=== PATIENT | male | born 1970 | race American Indian/Alaskan Native ===

== ENCOUNTER 2017-01-09 08:05 | Emergency (ER) | payer MEDICARE ==
--- NOTE | 2017-01-09 08:40 | XRay Report ---
ROUTINE CHEST, TWO VIEWS: HISTORY: Shortness of breath. The trachea, heart, mediastinal contour, lung machado and bony thorax are unremarkable. IMPRESSION: Unremarkable chest x-ray.
[2017-01-09 09:05] LABS: Basophils % (Auto) 0.7 % (0.0-1.8); Eosinophils % (Auto) 2.5 % (0.0-4.3); Hematocrit 43.2 % (35.5-45.6); Hemoglobin 14.5 gm/dl (11.8-15.2); Mean Corpuscular HGB Conc 34 % (32-34); Mean Corpuscular Hemoglobin 30 pg (28-32); Mean Corpuscular Volume 88 fl (84-94); Platelet Count 265 K/mm3 (140-440); Red Blood Count 4.88 M/mm3 (3.65-5.03); Red Cell Distribution Width 14.9 % (13.2-15.2); White Blood Count 7.2 K/mm3 (4.5-11.0)
[2017-01-09 09:07] LABS: Anion Gap 15 mmol/L; Blood Urea Nitrogen 14 mg/dL (9-20); Calcium 8.9 mg/dL (8.4-10.2); Carbon Dioxide 23 mmol/L (22-30); Chloride 102.4 mmol/L (98-107); Glucose 126 mg/dL (75-100); Potassium 3.7 mmol/L (3.6-5.0); Sodium 137 mmol/L (137-145)
--- NOTE | 2017-01-09 09:36 | Emergency Department Report ---
ED General Adult HPI - General Chief complaint: Dyspnea/Respdistress Stated complaint: LEG PAIN Time Seen by Provider: 01/09/17 09:22 Source: patient Mode of arrival: Ambulatory Limitations: No Limitations - History of Present Illness Initial comments: 46-year-old male presents to the emergency department complaining of leg pain and swelling. Patient reports over the past 3 days his legs have become swollen to the point where they have become painful. Patient describes aching pain in his legs. He states the swelling and pain is making it difficult for him to walk. He also reports mild shortness of breath over the past couple of days as well. He denies chest pain, diaphoresis, dizziness, nausea, or vomiting. There are no other complaints. -: Gradual, days(s) (3) Location: left, right, lower extremity Radiation: non-radiation Severity scale (0 -10): 3 Quality: aching Consistency: constant Improves with: none Worsens with: none Associated Symptoms: shortness of breath Treatments Prior to Arrival: none - Related Data Home Medications Medication Instructions Recorded Confirmed Last Taken Hydrochlorothiazide [HCTZ] 25 mg PO QDAY 03/19/16 05/07/16 05/07/16 09:00 Losartan [Cozaar] 100 mg PO QDAY 03/19/16 05/07/16 05/07/16 09:00 Previous Rx's Medication Instructions Recorded Last Taken Type traMADol [Ultram 50 MG tab] 50 mg PO Q6HR PRN #10 tablet 03/19/16 Unknown Rx Azithromycin [Zithromax Z-RAMON] 250 mg PO QDAY #6 tablet 09/25/16 Unknown Rx Ibuprofen [Motrin] 800 mg PO Q8HR PRN #14 tablet 09/25/16 Unknown Rx Promethazine /Codeine 5 ml PO Q6H PRN #100 ml 09/25/16 Unknown Rx [Phenergan/Codeine 6.25-10 mg/5Ml] Furosemide [Lasix] 20 mg PO QDAY #30 tablet 01/09/17 Unknown Rx Allergies Allergy/AdvReac Type Severity Reaction Status Date / Time No Known Allergies Allergy Verified 01/09/17 08:09 ED Review of Systems ROS: Stated complaint: LEG PAIN Other details as noted in HPI Comment: All other systems reviewed and negative Respiratory: shortness of breath Cardiovascular: edema ED Past Medical Hx - Past Medical History Previous Medical History?: Yes Hx Hypertension: Yes Hx GERD: Yes Additional medical history: GOUT. OBESITY - Surgical History Past Surgical History?: No - Family History Family history: no significant - Social History Smoking Status: Never Smoker Substance Use Type: None - Medications Home Medications: Home Medications Medication Instructions Recorded Confirmed Last Taken Type Hydrochlorothiazide [HCTZ] 25 mg PO QDAY 03/19/16 05/07/16 05/07/16 09:00 History Losartan [Cozaar] 100 mg PO QDAY 03/19/16 05/07/16 05/07/16 09:00 History traMADol [Ultram 50 MG tab] 50 mg PO Q6HR PRN #10 tablet 03/19/16 05/07/16 Unknown Rx Azithromycin [Zithromax Z-RAMON] 250 mg PO QDAY #6 tablet 09/25/16 Unknown Rx Ibuprofen [Motrin] 800 mg PO Q8HR PRN #14 tablet 09/25/16 Unknown Rx Promethazine /Codeine 5 ml PO Q6H PRN #100 ml 09/25/16 Unknown Rx [Phenergan/Codeine 6.25-10 mg/5Ml] Furosemide [Lasix] 20 mg PO QDAY #30 tablet 01/09/17 Unknown Rx ED Physical Exam - General Limitations: No Limitations General appearance: alert, in no apparent distress - Head Head exam: Present: atraumatic, normocephalic - Eye Eye exam: Present: normal appearance, PERRL, EOMI - ENT ENT exam: Present: normal exam, normal orophraynx, mucous membranes moist - Neck Neck exam: Present: normal inspection, full ROM. Absent: tenderness - Respiratory Respiratory exam: Present: normal lung sounds bilaterally. Absent: respiratory distress - Cardiovascular Cardiovascular Exam: Present: regular rate, normal rhythm, normal heart sounds - GI/Abdominal GI/Abdominal exam: Present: soft, normal bowel sounds. Absent: distended, tenderness - Extremities Exam Extremities exam: Present: normal inspection, full ROM, pedal edema (2+ pitting edema bilateral lower extremities extending to the knees). Absent: tenderness - Neurological Exam Neurological exam: Present: alert, oriented X3. Absent: motor sensory deficit - Skin Skin exam: Present: warm, dry, intact ED Course Vital Signs 01/09/17 01/09/17 01/09/17 08:15 09:34 10:10 Temperature 98.4 F 98.6 F Pulse Rate 103 H 95 H 95 H Respiratory 24 17 Rate Blood Pressure 206/120 204/121 Blood Pressure 182/116 [Left] O2 Sat by Pulse 99 97 Oximetry 01/09/17 10:11 Temperature Pulse Rate 95 H Respiratory 15 Rate Blood Pressure Blood Pressure 204/121 [Left] O2 Sat by Pulse 97 Oximetry ED Medical Decision Making - Lab Data Result diagrams: 01/09/17 08:37 01/09/17 08:37 - EKG Data -: EKG Interpreted by Me EKG shows normal: sinus rhythm, axis, intervals, QRS complexes Rate: normal - EKG Data When compared to previous EKG there are: no significant change Interpretation: unchanged when compared t (09/25/2016), nonspecific ST-T wave sofie - Radiology Data Radiology results: report reviewed, image reviewed Chest x-ray shows no acute cardiopulmonary abnormality. - Medical Decision Making Lab and imaging results reviewed and discussed with the patient. Patient will be discharged home at this time to follow up with his primary care physician. - Differential Diagnosis peripheral edema, CHF, renal failure Critical care attestation.: If time is entered above; I have spent that time in minutes in the direct care of this critically ill patient, excluding procedure time. ED Disposition Clinical Impression: Peripheral edema Disposition: DISCHARGED TO HOME OR SELFCARE Is pt being admited?: No Condition: Stable Instructions: Leg Edema (ED) Prescriptions: Furosemide [Lasix] 20 mg PO QDAY #30 tablet Referrals: PRIMARY CARE, [Primary Care Provider] - 3-5 Days Time of Disposition: 10:22
[2017-01-09] MEDS ORDERED: HCTZ PO ONE (09:47)
[2017-01-09] MEDS ORDERED: COZAAR PO ONE (09:48)
[2017-01-09 10:30] VITALS: BP 195/117
== END 2017-01-09 10:30 | disposition home or self-care (01) ==
LOC: ED 08:05
DX: R60.9 Edema, unspecified (principal); I10 Essential (primary) hypertension; K21.9 Gastro-esophageal reflux disease without esophagitis
CPT/HCPCS: 36415; 71020; 80048; 83880; 84484; 85025; 93005; 93010; 99284

== ENCOUNTER 2017-05-18 21:37 | Emergency (ER) | payer MEDICARE ==
[2017-05-18] MEDS ORDERED: CATAPRES ONE (22:04)
[2017-05-18] MEDS ORDERED: CATAPRES PO ONE (22:08)
[2017-05-18 22:36] LABS: Basophils % (Auto) 0.8 % (0.0-1.8); Eosinophils % (Auto) 3.3 % (0.0-4.3); Hematocrit 42.3 % (35.5-45.6); Mean Corpuscular HGB Conc 33 % (32-34); Mean Corpuscular Hemoglobin 30 pg (28-32); Mean Corpuscular Volume 89 fl (84-94); Platelet Count 304 K/mm3 (140-440); Red Blood Count 4.73 M/mm3 (3.65-5.03); Red Cell Distribution Width 14.6 % (13.2-15.2); White Blood Count 8.1 K/mm3 (4.5-11.0)
--- NOTE | 2017-05-18 22:55 | Cat Scan Report ---
FINAL REPORT PROCEDURE: CT head without contrast. TECHNIQUE: Computerized tomography of the head was performed without contrast material. HISTORY: Blurred vision, dizziness. COMPARISON: No prior studies are available for comparison. FINDINGS: The ventricles are normal in size. There is a focal area of diminished attenuation near the right internal capsule. This measures 6.6 millimeters x 6.1 millimeters. It may represent an old lacunar infarct, although this is unusual for the patient's age. It could also represent a dilated perivascular space of Virchow-Rl. It is of doubtful clinical significance. The roberts matter and white matter are otherwise normal. There are no mass lesions. There is no intracranial hemorrhage. The calvarium appears intact. The mastoid air cells are clear. There is mucosal thickening in the left maxillary sinus. IMPRESSION: Old lacunar infarct in the right basal ganglia versus congenital anomaly. Chronic left maxillary sinusitis.
[2017-05-18 23:05] LABS: Blood Urea Nitrogen 17 mg/dL (9-20); Calcium 9.3 mg/dL (8.4-10.2); Carbon Dioxide 24 mmol/L (22-30); Glucose 165 mg/dL (75-100)
[2017-05-18 23:06] LABS: Anion Gap 18 mmol/L; Chloride 100.5 mmol/L (98-107); Potassium 3.9 mmol/L (3.6-5.0); Sodium 139 mmol/L (137-145)
[2017-05-18] MEDS ORDERED: XYLOCAINE 1%/ EPI 1:100,000 INFILTRATI ONE (23:45)
--- NOTE | 2017-05-19 00:18 | Emergency Department Report ---
ED General Adult HPI - General Chief complaint: High BP Stated complaint: CP/HEAD PAIN Time Seen by Provider: 05/18/17 23:48 Source: patient Mode of arrival: Ambulatory Limitations: No Limitations - History of Present Illness Initial comments: Patient is a 46-year-old male past medical history as sleep apnea who presents with dental pain and earache. Patient's symptoms have been going on for last 2 days. Eating makes the pain worse and nothing makes it better. Patient states the pain is a 7 out of 10 the pain radiates from the mouth to the ear. It is a sharp achy pain. The pain is constant. Patient also states that he has a headache which has been going on since he's been having a toothache. Severity scale (0 -10): 0 - Related Data Home Medications Medication Instructions Recorded Confirmed Last Taken Hydrochlorothiazide [HCTZ] 25 mg PO QDAY 03/19/16 05/18/17 05/07/16 09:00 Losartan [Cozaar] 100 mg PO QDAY 03/19/16 05/18/17 05/07/16 09:00 Spironolactone [Aldactone] 25 mg PO QDAY 05/18/17 05/18/17 Unknown amLODIPine [Norvasc] 5 mg PO DAILY 05/18/17 05/18/17 Unknown Previous Rx's Medication Instructions Recorded Last Taken Type Acetaminophen [Acetaminophen TAB] 1,000 mg PO Q6HR #30 tablet 05/19/17 Unknown Rx Naproxen [Naprosyn] 375 mg PO BID #30 tablet 05/19/17 Unknown Rx Penicillin Vk [Veetids TAB] 250 mg PO QID #28 tablet 05/19/17 Unknown Rx Allergies Allergy/AdvReac Type Severity Reaction Status Date / Time No Known Allergies Allergy Verified 01/09/17 08:09 ED Review of Systems ROS: Stated complaint: CP/HEAD PAIN Other details as noted in HPI Constitutional: no symptoms reported Eyes: denies: eye pain, eye discharge, vision change ENT: dental pain. denies: ear pain, throat pain Respiratory: denies: cough, shortness of breath, wheezing Cardiovascular: denies: chest pain, palpitations Endocrine: no symptoms reported Gastrointestinal: denies: abdominal pain, nausea, diarrhea Genitourinary: denies: urgency, dysuria Musculoskeletal: denies: back pain, joint swelling, arthralgia Skin: denies: rash, lesions Neurological: denies: headache, weakness, paresthesias Psychiatric: denies: anxiety, depression Hematological/Lymphatic: denies: easy bleeding, easy bruising ED Past Medical Hx - Past Medical History Hx Hypertension: Yes Hx GERD: Yes Additional medical history: GOUT. OBESITY - Social History Smoking Status: Never Smoker Substance Use Type: None - Medications Home Medications: Home Medications Medication Instructions Recorded Confirmed Last Taken Type Hydrochlorothiazide [HCTZ] 25 mg PO QDAY 03/19/16 05/18/17 05/07/16 09:00 History Losartan [Cozaar] 100 mg PO QDAY 03/19/16 05/18/17 05/07/16 09:00 History Spironolactone [Aldactone] 25 mg PO QDAY 05/18/17 05/18/17 Unknown History amLODIPine [Norvasc] 5 mg PO DAILY 05/18/17 05/18/17 Unknown History Acetaminophen [Acetaminophen TAB] 1,000 mg PO Q6HR #30 tablet 05/19/17 Unknown Rx Naproxen [Naprosyn] 375 mg PO BID #30 tablet 05/19/17 Unknown Rx Penicillin Vk [Veetids TAB] 250 mg PO QID #28 tablet 05/19/17 Unknown Rx ED Physical Exam - General Limitations: No Limitations General appearance: alert, in no apparent distress - Head Head exam: Present: atraumatic, normocephalic - Eye Eye exam: Present: normal appearance - ENT ENT exam: Present: other (left lower molar dental caries on tooth 1 ) - Neck Neck exam: Present: normal inspection - Respiratory Respiratory exam: Present: normal lung sounds bilaterally. Absent: respiratory distress - GI/Abdominal GI/Abdominal exam: Present: soft, normal bowel sounds - Extremities Exam Extremities exam: Present: normal inspection - Back Exam Back exam: Present: normal inspection - Neurological Exam Neurological exam: Present: alert, oriented X3, CN II-XII intact - Skin Skin exam: Present: warm, dry, intact, normal color. Absent: rash ED Course Vital Signs 05/18/17 05/18/17 05/18/17 21:54 22:09 23:26 Temperature 98.8 F 98.8 F Pulse Rate 100 H 100 H 92 H Respiratory 20 20 Rate Blood Pressure 201/105 201/105 Blood Pressure 172/103 [Left] O2 Sat by Pulse 97 97 Oximetry 05/18/17 23:30 Temperature Pulse Rate Respiratory 20 Rate Blood Pressure Blood Pressure [Left] O2 Sat by Pulse 99 Oximetry - Reevaluation(s) Reevaluation #1: 05/19/17 00:38 Patient received dental block. Reevaluation #2: 05/19/17 01:03 Dental block a successful patient has no pain we'll send patient home with antibiotic and naproxen and Tylenol - Nerve Block Consent Obtained: verbal consent Local Anesthetic Used: Lidocaine 2% Amount of anesthesia used: 5 Side: left Intraoral Nerve Block: superior alveolar Procedure Successful: Yes Complications: none Patient Tolerated Procedure: no complications ED Medical Decision Making - Lab Data Result diagrams: 05/18/17 22:16 05/18/17 22:16 Lab Results 05/18/17 05/18/17 Range/Units 22:16 22:16 WBC 8.1 (4.5-11.0) K/mm3 RBC 4.73 (3.65-5.03) M/mm3 Hgb 14.0 (11.8-15.2) gm/dl Hct 42.3 (35.5-45.6) % MCV 89 (84-94) fl MCH 30 (28-32) pg MCHC 33 (32-34) % RDW 14.6 (13.2-15.2) % Plt Count 304 (140-440) K/mm3 Lymph % (Auto) 35.7 H (13.4-35.0) % Rice % (Auto) 8.3 H (0.0-7.3) % Eos % (Auto) 3.3 (0.0-4.3) % Baso % (Auto) 0.8 (0.0-1.8) % Lymph # 2.9 (1.2-5.4) K/mm3 Rice # 0.7 (0.0-0.8) K/mm3 Eos # 0.3 (0.0-0.4) K/mm3 Baso # 0.1 (0.0-0.1) K/mm3 Seg Neutrophils % 51.9 (40.0-70.0) % Seg Neutrophils # 4.2 (1.8-7.7) K/mm3 Sodium 139 (137-145) mmol/L Potassium 3.9 (3.6-5.0) mmol/L Chloride 100.5 (98-107) mmol/L Carbon Dioxide 24 (22-30) mmol/L Anion Gap 18 mmol/L BUN 17 (9-20) mg/dL Creatinine 1.0 (0.8-1.5) mg/dL Estimated GFR > 60 ml/min BUN/Creatinine Ratio 17.00 % Glucose 165 H (75-100) mg/dL Calcium 9.3 (8.4-10.2) mg/dL Troponin T < 0.010 (0.00-0.029) ng/mL - Radiology Data Radiology results: report reviewed, image reviewed CT head: Shows old lacunar infarct. No acute intracranial process - Medical Decision Making Chief medical diagnosis: Dental caries Differential medical diagnosis: Tension headache, metabolic, melena, periapical abscess I will get CT head, CBC, CMP Negrita and laboratory findings are within normal limits. Patient's clinical exam suggests toothache I will perform dental block. Discussed with patient importance of following up with dentist will give patient antibiotics for presumed periapical abscess. And I will send patient home with naproxen and Tylenol Critical care attestation.: If time is entered above; I have spent that time in minutes in the direct care of this critically ill patient, excluding procedure time. ED Disposition Clinical Impression: Tooth pain, Dental caries Disposition: DC- TO HOME OR SELFCARE Is pt being admited?: No Does the pt Need Aspirin: No Condition: Stable Additional Instructions: You can follow up at [facility] Address: [address] [place] [address] Hours: Open today 8:30AM4:30PM Suggest an edit Prescriptions: Acetaminophen [Acetaminophen TAB] 1,000 mg PO Q6HR #30 tablet Naproxen [Naprosyn] 375 mg PO BID #30 tablet Penicillin Vk [Veetids TAB] 250 mg PO QID #28 tablet Referrals: PRIMARY CARE, [Primary Care Provider] - 3-5 Days Time of Disposition: 01:11
[2017-05-19] MEDS ORDERED: XYLOCAINE 2%/ EPI 1:200,000 INFILTRATI ONE ×2 (00:29→00:49)
[2017-05-19 01:30] VITALS: BP 155/94
== END 2017-05-19 01:31 | disposition home or self-care (01) ==
LOC: ED 21:37
DX: K02.9 Dental caries, unspecified (principal); K08.89 Other specified disorders of teeth and supporting structures; K21.9 Gastro-esophageal reflux disease without esophagitis; M10.9 Gout, unspecified; E66.9 Obesity, unspecified
CPT/HCPCS: 36415; 70450; 80048; 84484; 85025; 93005; 93010

== ENCOUNTER 2017-06-15 13:35 | Emergency (ER) | payer MEDICARE ==
[2017-06-15 14:35] LABS: Bilirubin,Urine NEG (Negative); Blood,Urine LG (Negative); Ketones,Urine NEG (Negative); Leukocyte Esterase,Urine TR (Negative); Mucus,Urine FEW /HPF; Nitrite,Urine NEG (Negative); Protein,Urine <15 mg/dL mg/dL (Negative); RBC,Urine > 182.0 /HPF (0.0-6.0); Urobilinogen,Urine < 2.0 mg/dL (<2.0)
[2017-06-15] MEDS ORDERED: NACL 0.9% 1000 ML 1,000 ML IV ONE (16:18)
[2017-06-15] MEDS ORDERED: TORADOL IV ONE (16:18)
--- NOTE | 2017-06-15 16:18 | Emergency Department Report ---
ED Male HPI - General Chief complaint: Urogenital-Male Stated complaint: BLEEDING FROM PENIS Time Seen by Provider: 06/15/17 15:00 Source: patient Mode of arrival: Ambulatory Limitations: No Limitations - History of Present Illness MD Complaint: other (HEMATURIA) -: Sudden Location: penis Radiation: other (BACK) Severity: moderate, severe Quality: aching, sharp Consistency: intermittent Improves with: none Worsens with: none blood in urine, nausea/vomiting. denies: discharge, swelling, mass, rash, urinary retention, dysuria, fever, incontinence, other - Related Data Sexually active: Yes Home Medications Medication Instructions Recorded Confirmed Last Taken Hydrochlorothiazide [HCTZ] 25 mg PO QDAY 03/19/16 05/18/17 05/07/16 09:00 Losartan [Cozaar] 100 mg PO QDAY 03/19/16 05/18/17 05/07/16 09:00 Spironolactone [Aldactone] 25 mg PO QDAY 05/18/17 05/18/17 Unknown amLODIPine [Norvasc] 5 mg PO DAILY 05/18/17 05/18/17 Unknown Previous Rx's Medication Instructions Recorded Last Taken Type Acetaminophen [Acetaminophen TAB] 1,000 mg PO Q6HR #30 tablet 05/19/17 Unknown Rx Naproxen [Naprosyn] 375 mg PO BID #30 tablet 05/19/17 Unknown Rx Penicillin Vk [Veetids TAB] 250 mg PO QID #28 tablet 05/19/17 Unknown Rx Ondansetron [Zofran Odt] 4 mg PO Q6H PRN #6 tab.rapdis 06/15/17 Unknown Rx Tamsulosin [Flomax] 0.4 mg PO QDAY #10 cap 06/15/17 Unknown Rx traMADol [Ultram] 50 mg PO Q6HR PRN #10 tablet 06/15/17 Unknown Rx Allergies Allergy/AdvReac Type Severity Reaction Status Date / Time No Known Allergies Allergy Verified 01/09/17 08:09 ED Review of Systems ROS: Stated complaint: BLEEDING FROM PENIS Other details as noted in HPI Comment: Unobtainable due to pts medical conditions Constitutional: no symptoms reported, see HPI. denies: chills Eyes: as per HPI. denies: eye pain ENT: as per HPI. denies: ear pain, throat pain Respiratory: no symptoms reported, see HPI. denies: cough, orthopnea Cardiovascular: as per HPI. denies: chest pain, palpitations, dyspnea on exertion, orthopnea Endocrine: no symptoms reported, see HPI. denies: excessive sweating, flushing , intolerance to cold, intolerance to heat Gastrointestinal: as per HPI, abdominal pain (SUPRAPUB), nausea, vomiting (X2). denies: diarrhea, constipation, hematemesis, melena, hematochezia Genitourinary: as per HPI, hematuria Musculoskeletal: as per HPI, back pain Skin: as per HPI. denies: rash, lesions Neurological: as per HPI. denies: headache, weakness Psychiatric: as per HPI. denies: anxiety, depression Hematological/Lymphatic: as per HPI. denies: easy bleeding ED Past Medical Hx - Past Medical History Hx Hypertension: Yes Hx GERD: Yes Additional medical history: GOUT. OBESITY - Social History Smoking Status: Never Smoker Substance Use Type: None - Medications Home Medications: Home Medications Medication Instructions Recorded Confirmed Last Taken Type Hydrochlorothiazide [HCTZ] 25 mg PO QDAY 03/19/16 05/18/17 05/07/16 09:00 History Losartan [Cozaar] 100 mg PO QDAY 03/19/16 05/18/17 05/07/16 09:00 History Spironolactone [Aldactone] 25 mg PO QDAY 05/18/17 05/18/17 Unknown History amLODIPine [Norvasc] 5 mg PO DAILY 05/18/17 05/18/17 Unknown History Acetaminophen [Acetaminophen TAB] 1,000 mg PO Q6HR #30 tablet 05/19/17 Unknown Rx Naproxen [Naprosyn] 375 mg PO BID #30 tablet 05/19/17 Unknown Rx Penicillin Vk [Veetids TAB] 250 mg PO QID #28 tablet 05/19/17 Unknown Rx Ondansetron [Zofran Odt] 4 mg PO Q6H PRN #6 tab.rapdis 06/15/17 Unknown Rx Tamsulosin [Flomax] 0.4 mg PO QDAY #10 cap 06/15/17 Unknown Rx traMADol [Ultram] 50 mg PO Q6HR PRN #10 tablet 06/15/17 Unknown Rx ED Physical Exam - General Limitations: No Limitations General appearance: alert - Head Head exam: Present: atraumatic - Eye Eye exam: Present: PERRL - ENT ENT exam: Present: mucous membranes moist - Neck Neck exam: Present: normal inspection - Respiratory Respiratory exam: Present: normal lung sounds bilaterally. Absent: respiratory distress, wheezes, rales, rhonchi, stridor - Cardiovascular Cardiovascular Exam: Present: regular rate - GI/Abdominal GI/Abdominal exam: Present: soft, normal bowel sounds, other (MORBID OBESITY). Absent: distended, tenderness, guarding, rebound, rigid, diminished bowel sounds , hyperactive bowel sounds, hypoactive bowel sounds, organomegaly, mass, bruit, pulsatile mass, hernia - Rectal Rectal exam: Present: deferred - Extremities Exam Extremities exam: Present: normal inspection, full ROM - Back Exam Back exam: Present: normal inspection. Absent: tenderness, CVA tenderness (R), CVA tenderness (L), muscle spasm - Neurological Exam Neurological exam: Present: alert, oriented X3, CN II-XII intact, normal gait, reflexes normal - Psychiatric Psychiatric exam: Present: normal affect, normal mood - Skin Skin exam: Present: warm, dry, intact. Absent: rash ED Course Vital Signs 06/15/17 06/15/17 13:39 17:38 Temperature 98.6 F Pulse Rate 94 H Respiratory 18 Rate Blood Pressure 167/109 O2 Sat by Pulse 96 Oximetry - Reevaluation(s) Reevaluation #1: 06/15/17 17:54 TO ER W 1 W HX BACK PAIN, NAUSEA, VOMIT X 2 RAD TO SUPRAPUB AREA THEN TODAY HE URINATED AND FELT SHARP PAIN AND HAD HEMATURIA NO FEVER NO DYSURIA NO CVA TENDERNESS UA NOTED LABS AND CT MEDICATED CT NEG DISCUSSED W DR CHAVEZ TX FOR PRES STONE AND DC HOME W FU ED Medical Decision Making - Lab Data Result diagrams: 06/15/17 16:38 - Radiology Data Radiology results: report reviewed - Medical Decision Making NO FEVER NO CVA NO CONCERN STD HEMATURIA W PAIN CONSISTENT W STONE Critical care attestation.: If time is entered above; I have spent that time in minutes in the direct care of this critically ill patient, excluding procedure time. ED Disposition Clinical Impression: Nephrolithiasis, Hematuria Disposition: DC TO HOME OR SELFCARE Is pt being admited?: No Does the pt Need Aspirin: No Condition: Stable Instructions: Acute Hematuria (ED), Kidney Stones (ED), Renal Colic (ED) Additional Instructions: REST FLUIDS FOLLOW UP URO MEDS ORDERED Referrals: PRIMARY CARE, [Primary Care Provider] - 3-5 Days ALEXANDER MARTINEZ MD [Staff Physician] - 3-5 Days URIEL MOORE MD [Staff Physician] - 3-5 Days GENTRY HAINES MD [Staff Physician] - 3-5 Days Time of Disposition: 17:59
[2017-06-15 16:53] LABS: Basophils % (Auto) 1.4 % (0.0-1.8); Eosinophils % (Auto) 3.6 % (0.0-4.3); Hemoglobin 13.9 gm/dl (11.8-15.2); Mean Corpuscular HGB Conc 34 % (32-34); Mean Corpuscular Hemoglobin 31 pg (28-32); Mean Corpuscular Volume 90 fl (84-94); Platelet Count 290 K/mm3 (140-440); Red Blood Count 4.57 M/mm3 (3.65-5.03); Red Cell Distribution Width 14.6 % (13.2-15.2); White Blood Count 7.9 K/mm3 (4.5-11.0)
[2017-06-15] MEDS ORDERED: NORCO 5/325 PO ONE ×2 (17:00→17:56)
--- NOTE | 2017-06-15 17:18 | Cat Scan Report ---
FINAL REPORT EXAM: CT ABDOMEN PELVIS WO CON HISTORY: hematuria backpain TECHNIQUE: CT abdomen and pelvis without contrast PRIORS: None. FINDINGS: No acute abnormality identified in the lung bases. No focal abnormality identified within the liver parenchyma. The spleen demonstrates normal size and attenuation. No pancreatic abnormalities seen. Kidneys demonstrate no evidence of hydronephrosis or nephrolithiasis. No ureteral calculus identified. The adrenal glands are unremarkable. Abdominal aorta is normal in caliber. No pathologically enlarged lymph nodes are identified. No signs of free fluid or free air No evidence of small bowel dilatation. No pericolonic inflammatory changes are observed. Urinary bladder is unremarkable. Noted are metallic fragments within deep soft tissues of left hip. IMPRESSION: No evidence for and urolithiasis or obstructive uropathy No acute abnormality identified on noncontrast CT abdomen pelvis
[2017-06-15] MEDS ORDERED: ZOFRAN ODT PO ONE (17:57)
[2017-06-15] MEDS ORDERED: FLOMAX PO ONE (17:57)
[2017-06-15 18:39] VITALS: BP 132/74
[2017-06-15 18:55] LABS: Alanine Aminotransferase 21 units/L (7-56); Albumin 4.1 g/dL (3.9-5); Albumin/Globulin Ratio 1.4 %; Alkaline Phosphatase 97 units/L (35-129); Anion Gap 18 mmol/L; Blood Urea Nitrogen 12 mg/dL (9-20); Calcium 9.3 mg/dL (8.4-10.2); Carbon Dioxide 26 mmol/L (22-30); Chloride 99.5 mmol/L (98-107); Glucose 98 mg/dL (75-100); Potassium 4.4 mmol/L (3.6-5.0); Sodium 139 mmol/L (137-145); Total Protein 7.1 g/dL (6.3-8.2)
== END 2017-06-15 18:40 | disposition home or self-care (01) ==
LOC: ED 13:35
DX: N20.0 Calculus of kidney (principal); R31.9 Hematuria, unspecified; I10 Essential (primary) hypertension; K21.9 Gastro-esophageal reflux disease without esophagitis; E66.9 Obesity, unspecified; M10.9 Gout, unspecified
CPT/HCPCS: 36415; 74176; 80053; 81001; 85025; 96360; 99284; J7030

== ENCOUNTER 2018-05-16 16:30 | Emergency (ER) | payer MEDICARE ==
[2018-05-16 17:05] VITALS: BP 144/96
[2018-05-16 17:35] LABS: Bilirubin,Urine NEG (Negative); Blood,Urine NEG (Negative); Color,Urine Yellow (Yellow); Protein,Urine <15 mg/dL mg/dL (Negative); Urobilinogen,Urine < 2.0 mg/dL (<2.0)
[2018-05-16 17:46] LABS: Basophils # (Auto) 0.1 K/mm3 (0.0-0.1); Basophils % (Auto) 1.3 % (0.0-1.8); Eosinophils # (Auto) 0.2 K/mm3 (0.0-0.4); Eosinophils % (Auto) 1.8 % (0.0-4.3); Hematocrit 44.3 % (35.5-45.6); Hemoglobin 15.2 gm/dl (11.8-15.2); Lymphocytes % (Auto) 32.9 % (13.4-35.0); Mean Corpuscular HGB Conc 34 % (32-34); Mean Corpuscular Hemoglobin 31 pg (28-32); Mean Corpuscular Volume 90 fl (84-94); Monocytes # (Auto) 0.6 K/mm3 (0.0-0.8); Monocytes % (Auto) 6.3 % (0.0-7.3); Platelet Count 278 K/mm3 (140-440); Red Blood Count 4.93 M/mm3 (3.65-5.03); Red Cell Distribution Width 14.4 % (13.2-15.2)
[2018-05-16 17:58] LABS: BUN/Creatinine Ratio 14; Blood Urea Nitrogen 19 mg/dL (9-20); Calcium 9.2 mg/dL (8.4-10.2); Hemolysis Index 11
== END 2018-05-16 20:15 | disposition left against medical advice (07) ==
LOC: ED 16:30
DX: E11.65 Type 2 diabetes mellitus with hyperglycemia (principal); H53.8 Other visual disturbances; R53.83 Other fatigue; R51 Headache; R11.0 Nausea; K21.9 Gastro-esophageal reflux disease without esophagitis; E66.9 Obesity, unspecified; Z53.21 Procedure and treatment not carried out due to patient leaving prior to being seen by health care provider
CPT/HCPCS: 36415; 80048; 81001; 82805; 82962; 85025

== ENCOUNTER 2019-03-28 10:39 | Emergency (ER) | payer BC, MEDICARE ==
[2019-03-28] MEDS ORDERED: ASPIRIN PO ONE (10:48)
--- NOTE | 2019-03-28 11:46 | XRay Report ---
PROCEDURE: XR CHEST 1V AP TECHNIQUE: Chest radiograph single view. HISTORY: Chest Pain COMPARISONS: None . FINDINGS: Single frontal view of the chest was acquired and compared to the prior examination of February 18, 2019. The heart is normal in size. The lungs appear clear. The pleura and mediastinum are within normal mendoza its. IMPRESSION: No active disease in the chest This document is electronically signed by Wili Fernandez MD., March 28 2019 11:44:48 AM ET
--- NOTE | 2019-03-28 12:17 | Emergency Department Report ---
ED General Adult HPI - General Chief complaint: High BP Stated complaint: HYPERTENSION/DIABETIC/BLURRED VISION Time Seen by Provider: 03/28/19 11:31 Source: patient Mode of arrival: Ambulatory Limitations: No Limitations - History of Present Illness Initial comments: This is a 48 year old type II diabetic insulin-dependent with history of hypertension who presents to the emergency department primarily for concern that his sugar is elevated. He states that he has been urinating a lot, is weak and has some blurred vision. He states his blurred vision is symptomatic of his sugar being high. He did not check his sugar today nor his blood pressure. He states he is "on 4 medicines" for his blood pressure. He states he takes insulin once a day starting with an "L" which may be Lantus. He does not use a sliding scale. He goes to the [facility] for management of his diabetes and hypertension. He was admitted in February 2009 seen with the following discharge summary: Patient is a 48-year-old male with PMHx of CAD/CHF, hypertension, hyperlipidemia, DM type II, who presents to the ER with complaints of chest pain. 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 As above he has a history of medical noncompliance. -: Gradual, days(s) Radiation: other (no pain complaint) Associated Symptoms: denies other symptoms - Related Data Home Medications Medication Instructions Recorded Confirmed Last Taken Losartan [Cozaar] 100 mg PO QDAY 03/19/16 02/19/19 05/07/16 09:00 hydroCHLOROthiazide [HCTZ] 25 mg PO QDAY 03/19/16 05/18/17 05/07/16 09:00 Spironolactone [Aldactone] 25 mg PO QDAY 05/18/17 02/19/19 Unknown amLODIPine [Norvasc] 5 mg PO DAILY 05/18/17 02/19/19 Unknown Aspirin [Aspirin BABY CHEW TAB] 81 mg PO QDAY 02/19/19 02/19/19 Unknown Atenolol 25 mg PO DAILY 02/19/19 02/19/19 Unknown AtorvaSTATin [Lipitor] 10 mg PO QHS 02/19/19 02/19/19 Unknown Insulin Detemir [Levemir VIAL] 40 unit SQ QAM 02/19/19 02/19/19 Unknown metFORMIN [Glucophage] 1,000 mg PO QDAY 02/19/19 Unknown Previous Rx's Medication Instructions Recorded Last Taken Type Acetaminophen [Acetaminophen TAB] 1,000 mg PO Q6HR #30 tablet 05/19/17 Unknown Rx Naproxen [Naprosyn TAB] 375 mg PO BID #30 tablet 05/19/17 Unknown Rx Penicillin Vk [Veetids TAB] 250 mg PO QID #28 tablet 05/19/17 Unknown Rx Ondansetron [Zofran Odt] 4 mg PO Q6H PRN #6 tab.rapdis 06/15/17 Unknown Rx Tamsulosin [Flomax] 0.4 mg PO QDAY #10 cap 06/15/17 Unknown Rx traMADol [Ultram 50 MG tab] 50 mg PO Q6HR PRN #10 tablet 06/15/17 Unknown Rx Allergies Allergy/AdvReac Type Severity Reaction Status Date / Time No Known Allergies Allergy Verified 01/09/17 08:09 ED Review of Systems ROS: Stated complaint: HYPERTENSION/DIABETIC/BLURRED VISION Other details as noted in HPI Constitutional: weakness. denies: chills, fever Eyes: denies: eye pain, eye discharge, vision change ENT: denies: ear pain, throat pain Respiratory: denies: cough, shortness of breath, wheezing Cardiovascular: denies: chest pain, palpitations Endocrine: increased thirst, other (vague visual symptoms states typical of hyperglycemia) Gastrointestinal: denies: abdominal pain, nausea, diarrhea Genitourinary: denies: urgency, dysuria Musculoskeletal: denies: back pain, joint swelling, arthralgia Skin: denies: rash, lesions Neurological: denies: headache, weakness, paresthesias Psychiatric: denies: anxiety, depression Hematological/Lymphatic: denies: easy bleeding, easy bruising ED Past Medical Hx - Past Medical History Previous Medical History?: Yes Hx Hypertension: Yes Hx Congestive Heart Failure: Yes Hx Diabetes: Yes Hx GERD: Yes Additional medical history: GOUT. OBESITY - Surgical History Past Surgical History?: No - Social History Smoking Status: Never Smoker Substance Use Type: Prescribed - Medications Home Medications: Home Medications Medication Instructions Recorded Confirmed Last Taken Type Losartan [Cozaar] 100 mg PO QDAY 03/19/16 02/19/19 05/07/16 09:00 History hydroCHLOROthiazide [HCTZ] 25 mg PO QDAY 03/19/16 05/18/17 05/07/16 09:00 History Spironolactone [Aldactone] 25 mg PO QDAY 05/18/17 02/19/19 Unknown History amLODIPine [Norvasc] 5 mg PO DAILY 05/18/17 02/19/19 Unknown History Acetaminophen [Acetaminophen TAB] 1,000 mg PO Q6HR #30 tablet 05/19/17 Unknown Rx Naproxen [Naprosyn TAB] 375 mg PO BID #30 tablet 05/19/17 Unknown Rx Penicillin Vk [Veetids TAB] 250 mg PO QID #28 tablet 05/19/17 Unknown Rx Ondansetron [Zofran Odt] 4 mg PO Q6H PRN #6 tab.rapdis 06/15/17 Unknown Rx Tamsulosin [Flomax] 0.4 mg PO QDAY #10 cap 06/15/17 02/19/19 Unknown Rx traMADol [Ultram 50 MG tab] 50 mg PO Q6HR PRN #10 tablet 06/15/17 Unknown Rx Aspirin [Aspirin BABY CHEW TAB] 81 mg PO QDAY 02/19/19 02/19/19 Unknown History Atenolol 25 mg PO DAILY 02/19/19 02/19/19 Unknown History AtorvaSTATin [Lipitor] 10 mg PO QHS 02/19/19 02/19/19 Unknown History Insulin Detemir [Levemir VIAL] 40 unit SQ QAM 02/19/19 02/19/19 Unknown History metFORMIN [Glucophage] 1,000 mg PO QDAY 02/19/19 Unknown History ED Physical Exam - General Limitations: No Limitations General appearance: alert, in no apparent distress, obese - Head Head exam: Present: atraumatic, normocephalic - Eye Eye exam: Present: normal appearance. Absent: scleral icterus - ENT ENT exam: Present: mucous membranes moist - Neck Neck exam: Present: normal inspection. Absent: tenderness, meningismus - Respiratory Respiratory exam: Present: normal lung sounds bilaterally. Absent: respiratory distress - Cardiovascular Cardiovascular Exam: Present: regular rate, normal rhythm. Absent: systolic murmur, diastolic murmur, rubs, gallop - GI/Abdominal GI/Abdominal exam: Present: soft, normal bowel sounds. Absent: distended, tenderness, guarding, rebound, rigid - Rectal Rectal exam: Present: deferred - Extremities Exam Extremities exam: Present: normal inspection. Absent: pedal edema, calf tenderness - Back Exam Back exam: Present: normal inspection - Neurological Exam Neurological exam: Present: alert, oriented X3, CN II-XII intact, other (no apparent loss of visual acuity ). Absent: motor sensory deficit - Psychiatric Psychiatric exam: Present: normal affect, normal mood - Skin Skin exam: Present: warm, dry, intact, normal color. Absent: rash ED Course Vital Signs 03/28/19 03/28/19 03/28/19 10:41 12:26 14:02 Temperature 98.4 F Pulse Rate 99 H 84 72 Respiratory 18 16 Rate Blood Pressure 184/113 168/104 Blood Pressure 154/101 [Left] O2 Sat by Pulse 96 98 Oximetry 03/28/19 14:56 Temperature Pulse Rate 88 Respiratory 16 Rate Blood Pressure Blood Pressure 155/90 [Left] O2 Sat by Pulse 98 Oximetry - Reevaluation(s) Reevaluation #1: Patient is asymptomatic and resting supine comfortably. He has no shortness of breath. His pulse oximetry is 95-98%. He will receive insulin, blood pressure management and IV fluids. It is anticipated that he will be discharged. 03/28/19 13:44 Reevaluation #2: Tolerated fluids well. No blood pressures spike. Patient will be given some additional subcutaneous insulin and discharge instructions. 03/28/19 14:58 ED Medical Decision Making - Lab Data Result diagrams: 03/28/19 12:44 03/28/19 12:44 Laboratory Results - last 24 hr 03/28/19 12:44 WBC 6.4 RBC 5.51 H Hgb 17.2 H Hct 48.5 H MCV 88 MCH 31 MCHC 35 H RDW 14.2 Plt Count 287 Lymph % (Auto) 38.8 H [place] % (Auto) 7.2 Eos % (Auto) 2.1 Baso % (Auto) 1.0 Lymph # 2.5 [place] # 0.5 Eos # 0.1 Baso # 0.1 Seg Neutrophils % 50.9 Seg Neutrophils # 3.3 Laboratory Results - last 24 hr 03/28/19 03/28/19 12:44 12:44 WBC 6.4 RBC 5.51 H Hgb 17.2 H Hct 48.5 H MCV 88 MCH 31 MCHC 35 H RDW 14.2 Plt Count 287 Lymph % (Auto) 38.8 H [place] % (Auto) 7.2 Eos % (Auto) 2.1 Baso % (Auto) 1.0 Lymph # 2.5 [place] # 0.5 Eos # 0.1 Baso # 0.1 Seg Neutrophils % 50.9 Seg Neutrophils # 3.3 Sodium 131 L Potassium 4.7 Chloride 92.3 L Carbon Dioxide 21 L Anion Gap 22 BUN 26 H Creatinine 1.2 Estimated GFR > 60 BUN/Creatinine Ratio 22 Glucose 448 H Calcium 10.0 Troponin T < 0.010 Critical care attestation.: If time is entered above; I have spent that time in minutes in the direct care of this critically ill patient, excluding procedure time. ED Disposition Clinical Impression: Poorly-controlled hypertension, Poorly controlled diabetes mellitus Disposition: - TO HOME OR SELFCARE Is pt being admited?: No Does the pt Need Aspirin: No Condition: Stable Instructions: Diabetes Mellitus Type 2 in Adults (ED), Hypertension (ED) Additional Instructions: Further training on the management of your diabetes and blood pressure is needed. I would recommend [facility]. Return any acute change or problem. It is essential that you monitor your blood pressure and take your usual medications. A sliding scale would help you manage your sugar better. Referrals: DANICA STEWART MD [Primary Care Provider] - 24 Hours Time of Disposition: 15:01
[2019-03-28 12:57] LABS: Basophils # (Auto) 0.1 K/mm3 (0.0-0.1); Eosinophils # (Auto) 0.1 K/mm3 (0.0-0.4); Eosinophils % (Auto) 2.1 % (0.0-4.3); Hematocrit 48.5 % (35.5-45.6); Hemoglobin 17.2 gm/dl (11.8-15.2); Lymphocytes # (Auto) 2.5 K/mm3 (1.2-5.4); Lymphocytes % (Auto) 38.8 % (13.4-35.0); Mean Corpuscular HGB Conc 35 % (32-34); Mean Corpuscular Volume 88 fl (84-94); Monocytes # (Auto) 0.5 K/mm3 (0.0-0.8); Monocytes % (Auto) 7.2 % (0.0-7.3); Platelet Count 287 K/mm3 (140-440); Red Blood Count 5.51 M/mm3 (3.65-5.03); Red Cell Distribution Width 14.2 % (13.2-15.2)
[2019-03-28] MEDS ORDERED: ASPIRIN ONE (13:05)
[2019-03-28 13:14] LABS: BUN/Creatinine Ratio 22; Blood Urea Nitrogen 26 mg/dL (9-20); Hemolysis Index 78
[2019-03-28] MEDS ORDERED: NORMODYNE IV ONE (13:42)
[2019-03-28] MEDS ORDERED: NACL 0.9% 1000 ML 1,000 ML IV ONE (13:42)
[2019-03-28] MEDS ORDERED: HumuLIN R IV ONE (13:43)
[2019-03-28 14:56] VITALS: BP 155/90
[2019-03-28] MEDS ORDERED: HumuLIN R SUB-Q ONE (14:59)
== END 2019-03-28 15:21 | disposition home or self-care (01) ==
LOC: ED 10:39
DX: E11.65 Type 2 diabetes mellitus with hyperglycemia (principal); I11.0 Hypertensive heart disease with heart failure; I50.9 Heart failure, unspecified; K21.9 Gastro-esophageal reflux disease without esophagitis; E78.00 Pure hypercholesterolemia, unspecified; I25.10 Atherosclerotic heart disease of native coronary artery without angina pectoris; Z79.82 Long term (current) use of aspirin; Z79.4 Long term (current) use of insulin; Z79.899 Other long term (current) drug therapy
CPT/HCPCS: 36415; 71045; 80048; 82962; 84484; 85025; 93005; 93010; 96361; 96372; 96374; 96375; 99284; J7030; J1815

== ENCOUNTER 2019-08-19 16:05 | Observation (INO) | payer BC, MEDICARE ==
[2019-08-19] MEDS ORDERED: levETIRAcetam 1000 MG/NS 0.75% 1,000 MG/100 ML BAG IV ONE (16:27)
--- NOTE | 2019-08-19 16:28 | Emergency Department Report ---
ED Seizure HPI - General Stated Complaint: SEIZURE Time Seen by Provider: 08/19/19 16:23 Source: patient, EMS Mode of arrival: Stretcher Limitations: No Limitations - History of Present Illness Initial Comments: Patient is a 49-year-old male that presents emergency room with complaints of seizure activity. Patient states she had 2 seizures. Patient states he was witnessed by his family. Patient denies trauma. Family states he did not hit his head. Patient states she had a stroke 2 weeks ago and was seen at [facility]. Chest pain. Patient denies any physical complaint except for fatigue. MD Complaint: seizure -: Sudden Description of Episode: loss of consciousness, tonic-clonic movement -: second(s) Witnessed:: Yes Trauma: No Seizure History: none Place: home Possible Precipitating Event: none Associated Symptoms: denies: chest pain, confusion, cough, diaphoresis, fever/chills, loss of appetite, malaise, rash, shortness of breath, syncope, weakness, tongue injury, shoulder dislocation Treatments Prior to Arrival: none - Related Data Home Medications Medication Instructions Recorded Confirmed Last Taken Losartan [Cozaar] 100 mg PO QDAY 03/19/16 02/19/19 05/07/16 09:00 hydroCHLOROthiazide [HCTZ] 25 mg PO QDAY 03/19/16 05/18/17 05/07/16 09:00 Spironolactone [Aldactone] 25 mg PO QDAY 05/18/17 02/19/19 Unknown amLODIPine 5 mg PO DAILY 05/18/17 02/19/19 Unknown Aspirin [Aspirin BABY CHEW TAB] 81 mg PO QDAY 02/19/19 02/19/19 Unknown Atenolol 25 mg PO DAILY 02/19/19 02/19/19 Unknown AtorvaSTATin 10 mg PO QHS 02/19/19 02/19/19 Unknown Insulin Detemir [Levemir VIAL] 40 unit SQ QAM 02/19/19 02/19/19 Unknown metFORMIN [Glucophage] 1,000 mg PO QDAY 02/19/19 Unknown Previous Rx's Medication Instructions Recorded Last Taken Type Acetaminophen [Acetaminophen TAB] 1,000 mg PO Q6HR #30 tablet 05/19/17 Unknown Rx Naproxen [Naprosyn TAB] 375 mg PO BID #30 tablet 05/19/17 Unknown Rx Penicillin Vk [Veetids TAB] 250 mg PO QID #28 tablet 05/19/17 Unknown Rx Ondansetron [Zofran Odt] 4 mg PO Q6H PRN #6 tab.rapdis 06/15/17 Unknown Rx Tamsulosin [Flomax] 0.4 mg PO QDAY #10 cap 06/15/17 Unknown Rx traMADoL [Ultram 50 MG tab] 50 mg PO Q6HR PRN #10 tablet 06/15/17 Unknown Rx Allergies Allergy/AdvReac Type Severity Reaction Status Date / Time No Known Allergies Allergy Verified 01/09/17 08:09 ED Review of Systems ROS: Stated complaint: SEIZURE Other details as noted in HPI Constitutional: denies: chills, fever Eyes: denies: eye pain, eye discharge, vision change ENT: denies: ear pain, throat pain Respiratory: denies: cough, shortness of breath, wheezing Cardiovascular: denies: chest pain, palpitations Endocrine: no symptoms reported Gastrointestinal: denies: abdominal pain, nausea, diarrhea Genitourinary: denies: urgency, dysuria Musculoskeletal: denies: back pain, joint swelling, arthralgia Skin: denies: rash, lesions Neurological: denies: headache, weakness, paresthesias Psychiatric: denies: anxiety, depression Hematological/Lymphatic: denies: easy bleeding, easy bruising ED Past Medical Hx - Past Medical History Previous Medical History?: Yes Hx Hypertension: Yes Hx CVA: Yes Hx Congestive Heart Failure: Yes Hx Diabetes: Yes Hx GERD: Yes Additional medical history: GOUT. OBESITY - Surgical History Past Surgical History?: No - Family History Family history: no significant - Social History Smoking Status: Never Smoker Substance Use Type: Prescribed - Medications Home Medications: Home Medications Medication Instructions Recorded Confirmed Last Taken Type Losartan [Cozaar] 100 mg PO QDAY 03/19/16 02/19/19 05/07/16 09:00 History hydroCHLOROthiazide [HCTZ] 25 mg PO QDAY 03/19/16 05/18/17 05/07/16 09:00 History Spironolactone [Aldactone] 25 mg PO QDAY 05/18/17 02/19/19 Unknown History amLODIPine 5 mg PO DAILY 05/18/17 02/19/19 Unknown History Acetaminophen [Acetaminophen TAB] 1,000 mg PO Q6HR #30 tablet 05/19/17 Unknown Rx Naproxen [Naprosyn TAB] 375 mg PO BID #30 tablet 05/19/17 Unknown Rx Penicillin Vk [Veetids TAB] 250 mg PO QID #28 tablet 05/19/17 Unknown Rx Ondansetron [Zofran Odt] 4 mg PO Q6H PRN #6 tab.rapdis 06/15/17 Unknown Rx Tamsulosin [Flomax] 0.4 mg PO QDAY #10 cap 06/15/17 02/19/19 Unknown Rx traMADoL [Ultram 50 MG tab] 50 mg PO Q6HR PRN #10 tablet 06/15/17 Unknown Rx Aspirin [Aspirin BABY CHEW TAB] 81 mg PO QDAY 02/19/19 02/19/19 Unknown History Atenolol 25 mg PO DAILY 02/19/19 02/19/19 Unknown History AtorvaSTATin 10 mg PO QHS 02/19/19 02/19/19 Unknown History Insulin Detemir [Levemir VIAL] 40 unit SQ QAM 02/19/19 02/19/19 Unknown History metFORMIN [Glucophage] 1,000 mg PO QDAY 02/19/19 Unknown History ED Physical Exam - General Limitations: No Limitations General appearance: alert, in no apparent distress - Head Head exam: Present: atraumatic, normocephalic - Eye Eye exam: Present: normal appearance - ENT ENT exam: Present: mucous membranes moist - Neck Neck exam: Present: normal inspection - Respiratory Respiratory exam: Present: normal lung sounds bilaterally. Absent: respiratory distress - Cardiovascular Cardiovascular Exam: Present: regular rate, normal rhythm. Absent: systolic murmur, diastolic murmur, rubs, gallop - GI/Abdominal GI/Abdominal exam: Present: soft, normal bowel sounds - Rectal Rectal exam: Present: deferred - Extremities Exam Extremities exam: Present: normal inspection - Back Exam Back exam: Present: normal inspection - Neurological Exam Neurological exam: Present: alert, oriented X3, CN II-XII intact - Expanded Neurological Exam Expanded Patient oriented to: Present: person, place, time Best Eye Response ([place]): (4) open spontaneously Best Motor Response ([place]): (6) obeys commands Best Verbal Response ([place]): (5) oriented Tori Total: 15 - Psychiatric Psychiatric exam: Present: normal affect, normal mood - Skin Skin exam: Present: warm, dry, intact, normal color. Absent: rash ED Course Vital Signs 08/19/19 08/19/19 08/19/19 16:21 16:30 16:40 Temperature Pulse Rate 67 65 Respiratory 12 12 14 Rate Blood Pressure 126/52 126/52 Blood Pressure [Right] O2 Sat by Pulse 97 98 98 Oximetry 08/19/19 08/19/19 08/19/19 16:50 17:00 17:01 Temperature 97.7 F Pulse Rate 68 62 69 Respiratory 14 11 L 13 Rate Blood Pressure 121/63 154/65 Blood Pressure 145/81 [Right] O2 Sat by Pulse 98 98 97 Oximetry 08/19/19 08/19/19 08/19/19 17:10 17:20 17:44 Temperature Pulse Rate 59 L 62 65 Respiratory 11 L 9 L 10 L Rate Blood Pressure 154/65 164/83 164/83 Blood Pressure [Right] O2 Sat by Pulse 99 98 97 Oximetry 08/19/19 08/19/19 08/19/19 17:50 18:00 18:10 Temperature Pulse Rate 64 65 62 Respiratory 11 L 13 8 L Rate Blood Pressure 109/63 100/54 100/54 Blood Pressure [Right] O2 Sat by Pulse 98 98 99 Oximetry 08/19/19 08/19/19 08/19/19 18:20 18:30 18:40 Temperature Pulse Rate 62 63 69 Respiratory 18 14 12 Rate Blood Pressure 105/63 111/60 111/60 Blood Pressure [Right] O2 Sat by Pulse 98 98 99 Oximetry 08/19/19 08/19/19 08/19/19 18:50 19:00 19:10 Temperature Pulse Rate 65 66 66 Respiratory 12 11 L 11 L Rate Blood Pressure 133/81 104/63 104/63 Blood Pressure [Right] O2 Sat by Pulse 99 97 96 Oximetry 08/19/19 08/19/19 08/19/19 19:20 19:30 19:40 Temperature Pulse Rate 73 76 70 Respiratory 13 15 12 Rate Blood Pressure 114/60 162/84 162/84 Blood Pressure [Right] O2 Sat by Pulse 97 98 99 Oximetry 08/19/19 08/19/19 08/19/19 19:50 20:00 20:10 Temperature Pulse Rate 71 71 76 Respiratory 14 15 11 L Rate Blood Pressure 123/77 111/68 111/68 Blood Pressure [Right] O2 Sat by Pulse 98 96 98 Oximetry 08/19/19 08/19/19 20:20 20:30 Temperature Pulse Rate 75 Respiratory 12 Rate Blood Pressure 112/58 112/58 Blood Pressure [Right] O2 Sat by Pulse 97 85 Oximetry - Reevaluation(s) Reevaluation #1: I discussed all results with patient. I discussed plan of care with patient. Patient agrees with plan of care and admission. Patient to be admitted to the hospital service. 08/19/19 18:46 - Consultations Consultation #1: Hospitalist consult for admission. Hospitalist to admit patient. Hospitalist placing admission orders now 08/19/19 18:48 ED Medical Decision Making - Lab Data Result diagrams: 08/19/19 16:55 08/19/19 16:55 - EKG Data -: EKG Interpreted by Me EKG shows normal: sinus rhythm, axis, intervals, QRS complexes, ST-T waves Rate: normal - Radiology Data Radiology results: report reviewed CT head/brain wo con INDICATION / CLINICAL INFORMATION: 49 years Male; Seizure. TECHNIQUE: Routine CT head without contrast. All CT scans at this location are performed using CT dose reduction for ALARA by means of automated exposure control. COMPARISON: The study is compared to the previous CT of 05/18/2017. FINDINGS: BRAIN / INTRACRANIAL CONTENTS: There has been interval development of old infa rct involving the left santoyo radiata from the previous CT of developing encephalomalacia. There is a persistent old infarct along the genu of the right internal capsule. There is now mild ex vacu o dilatation of the left frontal horn. There otherwise appears be mild cerebral white matter disease most consistent with microvascular angiopathy. The above findings are advanced for the patient's age and correlation would be needed at. There is no CT evidence of acute intracranial hemorrhage or significant mass effect. ORBITS: No significant abnormality of visualized orbits. SINUSES / MASTOIDS: No significant abnormality the visualized paranasal sinuses or mastoid air cells. CRANIOCERVICAL JUNCTION: No significant abnormality. ADDITIONAL FINDINGS: None. IMPRESSION: 1. There is an infarct involving the anterior left santoyo radiata which appears chronic though has developed from the previous CT of 05/18/2017. 2. There is a persistent old lacunar infarct along the Maci of the right internal capsule. 3. There is otherwise mild microvascular angiopathy without CT evidence of acute intracranial hemorrhage. - Medical Decision Making Patient is a 49-year-old male that presents emergency room with new onset seizur and seizure activity. Patient recently had a stroke 2 weeks ago. Patient admitted to the hospitalist service. Patient's labs essentially unremarkable for hyperglycemia. Patient's head CT no acute findings but shows old strokes. Reviewed. - Differential Diagnosis seizure. New-onset seizure. Recent stroke Critical Care Time: Yes Critical care time in (mins) excluding proc time.: 35 Critical care attestation.: If time is entered above; I have spent that time in minutes in the direct care of this critically ill patient, excluding procedure time. Critical Care Time: 35 minutes ED Disposition Clinical Impression: Seizure, Recent cerebrovascular accident (CVA), New onset seizure, Hyperkalemia Disposition: [id number] OP ADMIT IP TO THIS HOSP Is pt being admited?: Yes Does the pt Need Aspirin: No Condition: Critical Time of Disposition: 18:49
[2019-08-19 17:21] LABS: Basophils # (Auto) 0.1 K/mm3 (0.0-0.1); Basophils % (Auto) 0.9 % (0.0-1.8); Eosinophils # (Auto) 0.2 K/mm3 (0.0-0.4); Eosinophils % (Auto) 2.2 % (0.0-4.3); Hematocrit 44.2 % (35.5-45.6); Hemoglobin 14.8 gm/dl (11.8-15.2); Lymphocytes # (Auto) 1.8 K/mm3 (1.2-5.4); Lymphocytes % (Auto) 24.8 % (13.4-35.0); Mean Corpuscular HGB Conc 33 % (32-34); Mean Corpuscular Volume 90 fl (84-94); Monocytes # (Auto) 0.6 K/mm3 (0.0-0.8); Platelet Count 311 K/mm3 (140-440)
[2019-08-19 17:33] LABS: Albumin 4.2 g/dL (3.9-5); BUN/Creatinine Ratio 12; Blood Urea Nitrogen 16 mg/dL (9-20); Calcium 9.4 mg/dL (8.4-10.2); Hemolysis Index 100
[2019-08-19 17:47] LABS: Alanine Aminotransferase 10 units/L (7-56)
--- NOTE | 2019-08-19 18:16 | Cat Scan Report ---
CT head/brain wo con INDICATION / CLINICAL INFORMATION: 49 years Male; Seizure. TECHNIQUE: Routine CT head without contrast. All CT scans at this location are performed using CT dos e reduction for ALARA by means of automated exposure control. COMPARISON: The study is compared to the previous CT of 05/18/2017. FINDINGS: BRAIN / INTRACRANIAL CONTENTS: There has been interval development of old infarct involving the left santoyo radiata from the previous CT of developing encephalomalacia. There is a persistent old infarct along the genu of the right internal capsule. There is now mild ex vacuo dilatation of the left fron marleni horn. There otherwise appears be mild cerebral white matter disease most consistent with microvascular belem opathy. The above findings are advanced for the patient's age and correlation would be needed at. The re is no CT evidence of acute intracranial hemorrhage or significant mass effect. ORBITS: No significant abnormality of visualized orbits. SINUSES / MASTOIDS: No significant abnormality the visualized paranasal sinuses or mastoid air cells. CRANIOCERVICAL JUNCTION: No significant abnormality. ADDITIONAL FINDINGS: None. IMPRESSION: 1. There is an infarct involving the anterior left santoyo radiata which appears chronic though has de veloped from the previous CT of 05/18/2017. 2. There is a persistent old lacunar infarct along the Maci of the right internal capsule. 3. There is otherwise mild microvascular angiopathy without CT evidence of acute intracranial hemorrh age. Signer Name: Huey Delcid MD Signed: 08/19/2019 6:11 PM Workstation Name: [id number]
--- NOTE | 2019-08-19 18:56 | History and Physical Report ---
History of Present Illness Chief complaint: He had a seizure History of present illness: 49 YO Male with DM, GERD, CVA, HTN, Obesity Hypoventilation Syndrome presents to ED for evaluation. Pt states that he does not remember the event and is unable to provide history. Pt family is at bedside and provides history. As per family, the patient experienced 2 seizures today with each episode lasting approximately 3 minutes. Pt fell from a standing position and landing on his left knee before collapsing to the ground. EMS notified, and upon arrival the patient was found to be in distress and transported to [facility]. Pt seen and evaluated in ED and found to have new onset Seizure Disorder. Pt placed in observation status and admitted to medical floor. Neurology team consulted in ED. Pt denies fever, chills, CP, palpitations, NVD, skin rash, vertigo, or recent ill contacts. Prior admission on 02/18/19 reviewed. All listed medication reconciled at time of admission. Past History Past Medical History: other (see hpi) Past Surgical History: No surgical history, Other (reviewed) Social history: , lives with family. denies: smoking, alcohol abuse, prescription drug abuse Family history: diabetes, hypertension Medications and Allergies Allergies Allergy/AdvReac Type Severity Reaction Status Date / Time No Known Allergies Allergy Verified 01/09/17 08:09 Home Medications Medication Instructions Recorded Confirmed Last Taken Type Losartan [Cozaar] 100 mg PO QDAY 03/19/16 02/19/19 05/07/16 09:00 History hydroCHLOROthiazide [HCTZ] 25 mg PO QDAY 03/19/16 05/18/17 05/07/16 09:00 History Spironolactone [Aldactone] 25 mg PO QDAY 05/18/17 02/19/19 Unknown History amLODIPine 5 mg PO DAILY 05/18/17 02/19/19 Unknown History Acetaminophen [Acetaminophen TAB] 1,000 mg PO Q6HR #30 tablet 05/19/17 Unknown Rx Naproxen [Naprosyn TAB] 375 mg PO BID #30 tablet 05/19/17 Unknown Rx Penicillin Vk [Veetids TAB] 250 mg PO QID #28 tablet 05/19/17 Unknown Rx Ondansetron [Zofran Odt] 4 mg PO Q6H PRN #6 tab.rapdis 06/15/17 Unknown Rx Tamsulosin [Flomax] 0.4 mg PO QDAY #10 cap 06/15/17 02/19/19 Unknown Rx traMADoL [Ultram 50 MG tab] 50 mg PO Q6HR PRN #10 tablet 06/15/17 Unknown Rx Aspirin [Aspirin BABY CHEW TAB] 81 mg PO QDAY 02/19/19 02/19/19 Unknown History Atenolol 25 mg PO DAILY 02/19/19 02/19/19 Unknown History AtorvaSTATin 10 mg PO QHS 02/19/19 02/19/19 Unknown History Insulin Detemir [Levemir VIAL] 40 unit SQ QAM 02/19/19 02/19/19 Unknown History metFORMIN [Glucophage] 1,000 mg PO QDAY 02/19/19 Unknown History Review of Systems Constitutional: no weight loss, no weight gain, no fever, no chills Ears, nose, mouth and throat: no ear pain, no ear discharge, no tinnitis, no nose pain, no nasal congestion Cardiovascular: no chest pain, no orthopnea, no rapid/irregular heart beat, no edema Respiratory: no cough, no cough with sputum, no excessive sputum, no dyspnea on exertion Gastrointestinal: no nausea, no diarrhea, no constipation, no hematemesis Genitourinary Male: no hematuria, no flank pain, no discharge, no urinary frequency, no urinary hesitancy Rectal: no pain, no incontinence, no bleeding Musculoskeletal: no neck stiffness, no neck pain, no shooting arm pain, no shooting leg pain, no leg numbness/tingling, no redness of joints Integumentary: no rash, no pruritis, no redness, no sores, no jaundice Neurological: seizures, no paralysis, no weakness, no parathesias, no aphasia Psychiatric: no anxiety, no change in sleep habits, no sleep disturbances, no insomnia, no change in appetite, no change in libido, no disorientation Endocrine: no cold intolerance, no heat intolerance, no polyphagia, no excessive thirst, no polydipsia, no nocturia, no excessive sweating Hematologic/Lymphatic: no easy bruising, no easy bleeding Allergic/Immunologic: no urticaria, no allergic rhinitis, no persistent infections, no anaphylaxis, no angioedema Exam - Constitutional Vitals: Temp Pulse Resp BP Pulse Ox 97.7 F 69 13 145/81 97 08/19/19 17:01 08/19/19 17:01 08/19/19 17:01 08/19/19 17:01 08/19/19 17:01 General appearance: Present: mild distress, obese - EENT Eyes: Present: PERRL ENT: hearing intact, clear oral mucosa - Neck Neck: Present: supple, normal ROM - Respiratory Respiratory effort: normal Respiratory: bilateral: CTA - Cardiovascular Heart Sounds: Present: S1 & S2. Absent: rub, click - Extremities Extremities: pulses symmetrical, No edema Peripheral Pulses: within normal limits - Abdominal General gastrointestinal: Present: soft, non-tender, non-distended, normal bowel sounds Male genitourinary: Present: normal - Integumentary Integumentary: Present: clear, warm, dry - Musculoskeletal Musculoskeletal: gait normal, strength equal bilaterally - Psychiatric Psychiatric: appropriate mood/affect, intact judgment & insight - Neurologic Neurologic: CNII-XII intact, moves all extremities Results - Labs CBC & Chem 7: 08/19/19 16:55 08/19/19 16:55 Labs: Abnormal lab results 08/19/19 08/19/19 08/19/19 Range/Units 16:35 16:55 16:55 [place] % (Auto) 8.0 H (0.0-7.3) % Potassium 5.1 H (3.6-5.0) mmol/L Carbon Dioxide 21 L (22-30) mmol/L Glucose 170 H (75-100) mg/dL POC Glucose 124 H (70-105) Salicylates (2.8-20.0) mg/dL Acetaminophen (10.0-30.0) ug/mL 08/19/19 08/19/19 Range/Units 16:55 16:55 [place] % (Auto) (0.0-7.3) % Potassium (3.6-5.0) mmol/L Carbon Dioxide (22-30) mmol/L Glucose (75-100) mg/dL POC Glucose (70-105) Salicylates < 0.3 L (2.8-20.0) mg/dL Acetaminophen < 5.0 L (10.0-30.0) ug/mL Assessment and Plan - Patient Problems (1) New onset seizure Current Visit: Yes Status: Acute Plan to address problem: Keppra loading, Keppra BID, seizure precautions, neuro check, neurology consulted, CT head, EEG in am. (2) Obesity hypoventilation syndrome Current Visit: Yes Status: Acute Plan to address problem: supplemental oxygen, pulse oximetry, NIPPV as clinically indicated, Outpatient sleep study. (3) Diabetes Current Visit: Yes Status: Acute Plan to address problem: ADA diet, insulin, accu check, hypoglycemia protocol (4) HTN (hypertension) Current Visit: Yes Status: Acute Qualifiers: Hypertension type: essential hypertension Qualified Code(s): I10 - Essential (primary) hypertension Plan to address problem: monitor bp q shift, continue medical management (5) GERD (gastroesophageal reflux disease) Current Visit: Yes Status: Acute Qualifiers: Esophagitis presence: without esophagitis Qualified Code(s): K21.9 - Gastro-esophageal reflux disease without esophagitis Plan to address problem: PPI therapy (6) DVT prophylaxis Current Visit: Yes Status: Acute Plan to address problem: SCD to BLE while in bed, supportive care
[2019-08-19] MEDS ORDERED: ACETAMINOPHEN 325 MG TAB PO PRN (19:00)
[2019-08-19] MEDS ORDERED: ALBUTEROL 2.5 MG/3 ML NEBU IH PRN (19:00)
[2019-08-19] MEDS ORDERED: ONDANSETRON 4 MG/2 ML INJ IV PRN (19:00)
[2019-08-19] MEDS ORDERED: ONDANSETRON 4 MG ODT TAB PO PRN (19:02)
[2019-08-19] MEDS ORDERED: traMADol 50 MG TAB PO PRN (19:23)
[2019-08-19] MEDS ORDERED: DEXTROSE 50% IN WATER (25GM) 50 ML SYRINGE IV PRN (20:10)
--- NOTE | 2019-08-19 22:27 | XRay Report ---
LEFT KNEE 3 VIEW(S) INDICATION / CLINICAL INFORMATION: left knee pain COMPARISON: None available. FINDINGS: BONES / JOINT(S): No acute fracture or subluxation. Small tricompartmental osteophytes typical of mil d osteoarthrosis. SOFT TISSUES: No significant abnormality. Signer Name: George Ortega MD Signed: 08/19/2019 10:23 PM Workstation Name: [id number]
[2019-08-19] MEDS: levETIRAcetam 500 MG TAB PO SCH (22:41)
[2019-08-20] MEDS: NAPROXEN 375 MG TAB PO SCH ×3 (00:12→22:13)
[2019-08-20] MEDS: INSULIN LISPRO 100 UNIT/ML SUB-Q SCH ×4 (00:15→17:15)
[2019-08-20 00:26] LABS: Amorphous Crystals,Urine Few; Amphetamine Screen,Urine PRESUMPTIVE NEGATIVE; Bacteria,Urine 1+ /HPF (Negative); Benzodiazepines Screen,Urine PRESUMPTIVE NEGATIVE; Bilirubin,Urine NEG (Negative); Blood,Urine NEG (Negative); Cannabinoid Screen,Urine PRESUMPTIVE NEGATIVE; Cocaine Screen,Urine PRESUMPTIVE NEGATIVE; Color,Urine Yellow (Yellow); Hyaline Casts,Urine 7 /LPF; Methadone Screen,Urine PRESUMPTIVE NEGATIVE; Mucus,Urine 1+ /HPF; Opiate Screen,Urine PRESUMPTIVE NEGATIVE; RBC,Urine < 1.0 /HPF (0.0-6.0)
[2019-08-20 05:38] LABS: Basophils # (Auto) 0.1 K/mm3 (0.0-0.1); Basophils % (Auto) 1.2 % (0.0-1.8); Eosinophils # (Auto) 0.2 K/mm3 (0.0-0.4); Eosinophils % (Auto) 2.3 % (0.0-4.3); Hematocrit 42.4 % (35.5-45.6); Hemoglobin 14.4 gm/dl (11.8-15.2); Lymphocytes # (Auto) 2.8 K/mm3 (1.2-5.4); Lymphocytes % (Auto) 33.5 % (13.4-35.0); Mean Corpuscular HGB Conc 34 % (32-34); Mean Corpuscular Volume 89 fl (84-94); Monocytes # (Auto) 0.7 K/mm3 (0.0-0.8); Monocytes % (Auto) 8.8 % (0.0-7.3); Platelet Count 268 K/mm3 (140-440); Red Blood Count 4.75 M/mm3 (3.65-5.03); Red Cell Distribution Width 14.1 % (13.2-15.2)
[2019-08-20 05:57] LABS: Alanine Aminotransferase 9 units/L (7-56); Albumin 3.8 g/dL (3.9-5); BUN/Creatinine Ratio 18; Blood Urea Nitrogen 24 mg/dL (9-20); Calcium 8.9 mg/dL (8.4-10.2); Hemolysis Index 48
[2019-08-20] MEDS: LOSARTAN 50 MG TAB PO SCH (09:45)
[2019-08-20] MEDS: levETIRAcetam 500 MG TAB PO SCH ×2 (09:46→22:13)
[2019-08-20] MEDS: TAMSULOSIN 0.4 MG CAP PO SCH (09:46)
[2019-08-20] MEDS: ASPIRIN 81 MG TAB CHEW PO SCH (09:46)
[2019-08-20] MEDS ORDERED: NON-FORMULARY EACH (Losartan [Cozaar] 100 MG) PO SCH (10:00)
[2019-08-20] MEDS ORDERED: NON-FORMULARY EACH (Atenolol 25 MG) PO SCH (10:00)
--- NOTE | 2019-08-20 11:38 | Consultation ---
Past History Past Medical History: other (see hpi) Past Surgical History: No surgical history, Other (reviewed) Social history: , lives with family. denies: smoking, alcohol abuse, prescription drug abuse Family history: diabetes, hypertension Medications and Allergies Allergies Allergy/AdvReac Type Severity Reaction Status Date / Time No Known Allergies Allergy Verified 01/09/17 08:09 Home Medications Medication Instructions Recorded Confirmed Last Taken Type Losartan [Cozaar] 100 mg PO QDAY 03/19/16 08/20/19 08/19/19 10:00 History hydroCHLOROthiazide [HCTZ] 25 mg PO QDAY 03/19/16 08/20/19 08/19/19 10:00 History Spironolactone [Aldactone] 25 mg PO QDAY 05/18/17 08/20/19 08/19/19 10:00 History amLODIPine 5 mg PO DAILY 05/18/17 08/20/19 08/19/19 10:00 History Acetaminophen [Acetaminophen TAB] 1,000 mg PO Q6HR #30 tablet 05/19/17 08/20/19 Unknown Rx Naproxen [Naprosyn TAB] 375 mg PO BID #30 tablet 05/19/17 08/20/19 08/19/19 22:00 Rx Penicillin Vk [Veetids TAB] 250 mg PO QID #28 tablet 05/19/17 08/20/19 08/19/19 10:00 Rx Ondansetron [Zofran Odt] 4 mg PO Q6H PRN #6 tab.rapdis 06/15/17 08/20/19 08/19/19 10:00 Rx Tamsulosin [Flomax] 0.4 mg PO QDAY #10 cap 06/15/17 08/20/19 08/19/19 10:00 Rx traMADoL [Ultram 50 MG tab] 50 mg PO Q6HR PRN #10 tablet 06/15/17 08/20/19 Unknown Rx Aspirin [Aspirin BABY CHEW TAB] 81 mg PO QDAY 02/19/19 08/20/19 08/19/19 10:00 History Atenolol 25 mg PO DAILY 02/19/19 08/20/19 08/19/19 10:00 History AtorvaSTATin 10 mg PO QHS 02/19/19 08/20/19 08/19/19 22:00 History Insulin Detemir [Levemir VIAL] 40 unit SQ QAM 02/19/19 08/20/19 08/19/19 10:00 History metFORMIN [Glucophage] 1,000 mg PO QDAY 02/19/19 08/20/19 08/19/19 10:00 History Active Meds: Active Medications Acetaminophen (Tylenol) 650 mg PO Q4H PRN PRN Reason: Pain MILD(1-3)/Fever >100.5/COLON Albuterol (Proventil) 2.5 mg IH Q4HRT PRN PRN Reason: Shortness Of Breath Amlodipine Besylate (Amlodipine) 5 mg PO DAILY [facility] Aspirin (Baby Aspirin) 81 mg PO QDAY [facility] Last Admin: 08/20/19 09:46 Dose: 81 mg Documented by: Atenolol (Tenormin) 25 mg PO QDAY [facility] Atorvastatin Calcium (Atorvastatin) 10 mg PO QHS [facility] Last Admin: 08/19/19 22:41 Dose: 10 mg Documented by: Dextrose (D50w (25gm) Syringe) 50 ml IV Q30MIN PRN; Protocol PRN Reason: Hypoglycemia Hydrochlorothiazide (Hctz) 25 mg PO QDAY [facility] Insulin Human Lispro (Humalog) 0 unit SUB-Q Q6HR [facility]; Protocol Last Admin: 08/20/19 06:30 Dose: Not Given Documented by: Levetiracetam (Keppra) 500 mg PO BID [facility] Last Admin: 08/20/19 09:46 Dose: 500 mg Documented by: Losartan Potassium (Cozaar) 100 mg PO QDAY [facility] Last Admin: 08/20/19 09:45 Dose: 100 mg Documented by: Naproxen (Naproxen) 375 mg PO BID [facility] Last Admin: 08/20/19 00:12 Dose: 375 mg Documented by: Ondansetron HCl (Zofran) 4 mg IV Q8H PRN PRN Reason: Nausea And Vomiting Ondansetron HCl (Zofran Odt) 4 mg PO Q6H PRN PRN Reason: Nausea Sodium Chloride (Sodium Chloride Flush Syringe 10 Ml) 10 ml IV BID [facility] Last Admin: 08/20/19 09:46 Dose: 10 ml Documented by: Sodium Chloride (Sodium Chloride Flush Syringe 10 Ml) 10 ml IV PRN PRN PRN Reason: LINE FLUSH Spironolactone (Aldactone) 25 mg PO QDAY [facility] Tamsulosin HCl (Flomax) 0.4 mg PO QDAY [facility] Last Admin: 08/20/19 09:46 Dose: 0.4 mg Documented by: Tramadol HCl (Ultram) 50 mg PO Q6H PRN PRN Reason: Pain, Moderate (4-6) Physical Examination - Vital Signs Vital Signs: Vital Signs Resp Pulse Ox 12 97 08/19/19 16:21 08/19/19 16:21 Results - Laboratory Findings CBC and BMP: 08/20/19 05:26 08/20/19 05:26 Abnormal Lab Findings: Abnormal Labs 08/19/19 08/19/19 08/19/19 16:35 16:55 16:55 [place] % (Auto) 8.0 H Potassium 5.1 H Carbon Dioxide 21 L BUN Glucose 170 H POC Glucose 124 H Albumin Salicylates Acetaminophen 08/19/19 08/19/19 08/20/19 16:55 16:55 00:24 [place] % (Auto) Potassium Carbon Dioxide BUN Glucose POC Glucose 145 H Albumin Salicylates < 0.3 L Acetaminophen < 5.0 L 08/20/19 08/20/19 08/20/19 05:26 05:26 07:11 [place] % (Auto) 8.8 H Potassium Carbon Dioxide BUN 24 H Glucose 144 H POC Glucose 132 H Albumin 3.8 L Salicylates Acetaminophen Assessment and Plan 49 YEAR OLD MALE WITH HISTORY OF HYPERTENSION,DIABETES AND STROKE IN THE PAST,GERD AND NO HISTORY OF SEIZURE DEVELOPED ONE EPISODE OF LOSS OF CONSCIOUSNESS FOLLOWED BY ANOTHER IN FEW MINUTES ON 08/19/2019. EPISODE WAS WITNESSED BY HIS NEPHEW WHO IS A NORMAL FUNCTIONING ADULT. PATIENT DOES NOT REMEMBER LOSING CONSCIOUSNESS,HOWEVER HE REMEMBERS SEEING THE EMS. HE C OMPLAINED OF LETHARGY AND HEADACHE ON HIS WAY TOT [facility] WHICH GRADUALLY RESOLVED SOON AFTER ARRIVAL TO THE EMERGENCY.WORK UP DID NOT SHOW ANY ELECTROLYTE ABNORMALITY OR EXTREME HYPOGLYCEMIA OR EXTREME HYPERGLYCEMIA WHICH COULD PRECIPITATE SEIZURE.AFTER ADMISSION HE HAS BEEN PLACED ON KEPPRA AND DID NOT HAVE ANY RECURRENCE OF SEIZURE. CT SCAN UPON ADMISSION SHOWED OLD INFARCT IN THE LEFT INTERNAL CAPSULE AND OLD INFARCT IN THE RIGHT [place] RADIATA. NO NEW INFARCT. PHYSICAL EXAMINATION; IN NO ACUTE DISTRESS, PATIENT IS ALERT AND APPROPRIATE, HAS INSIGHT INTO HIS CONDITION AND ANSWERS QUESTIONS APPROPRIATELY. HEART-NORMAL RATE AND RHYTHM, ENT- BIG TONGUE ,BIG UVULA WITH REDUNDANT TISSUE IN THE [place] PHARYNGEAL SPACE CAROTIDS-BOTH PALPABLE, CRANIAL NERVES- NO FACIAL ASYMMETRY,EXTRA OCULAR MOVEMENT IS INTACT,OTHER CRANIAL NERVES ARE ALSO WITH IN NORMAL LIMIT. MOTOR- NORMAL STRENGTH IN ALL FOUR EXTREMITIES WITH OUT ANY ASYMMETRY. COORDINATION-NORMAL REFLEXES- ALL REFLEXES ARE SYMMETRIC AND ARE WITH IN NORMAL LIMIT.BILATERAL DOWN GOING TOES. SENSORY-GROSSLY WITH IN NORMAL LIMIT. 1. SEIZURE DISORDER, PATIENT HAS EPILEPSY 2. OBSTRUCTIVE SLEEP APNEA RECOMMEND. 1. CONTINUE KEPPRA 500MG PO BID REGULARLY 2. WILL NEED SLEEP EVALUATION AND CPAP TO PREVENT FUTURE STROKE, OBSTRUCTIVE SLEEP APNEA IS ALSO AN INDEPENDENT RISK FACTOR STROKE3. HE WILL NEED REGULAR NEURO FOLLOW UP EVERY FEW MONTHS
[2019-08-20] MEDS: amLODIPine 5 MG TAB PO SCH (12:06)
[2019-08-20] MEDS: SPIRONOLACTONE 25 MG TAB PO SCH (12:06)
--- NOTE | 2019-08-20 12:35 | Progress Note ---
Assessment and Plan Assessment and plan: Seizure disorder. New-onset. Continue Keppra 500 mg twice a day. EEG per neurology. Probable JANICE/OHS. Patient will need sleep study as an outpatient. History Interval history: No new seizure activity since admission. Hospitalist Physical - Constitutional Vitals: Temp Pulse Resp BP Pulse Ox 98.3 F 71 18 139/90 97 08/20/19 11:41 08/20/19 11:41 08/20/19 11:41 08/20/19 11:41 08/20/19 11:41 General appearance: Present: no acute distress, obese - EENT Eyes: Present: PERRL, EOM intact ENT: hearing intact, clear oral mucosa, dentition normal - Neck Neck: Present: supple, normal ROM - Respiratory Respiratory effort: normal Respiratory: bilateral: CTA - Cardiovascular Rhythm: regular Heart Sounds: Present: S1 & S2. Absent: gallop, rub - Extremities Extremities: no ischemia, No edema, Full ROM - Abdominal General gastrointestinal: soft, non-tender, non-distended, normal bowel sounds - Integumentary Integumentary: Present: clear, warm, dry - Neurologic Neurologic: CNII-XII intact, moves all extremities Results - Labs CBC & Chem 7: 08/20/19 05:26 08/20/19 05:26 Labs: Laboratory Last Values WBC 8.3 K/mm3 (4.5-11.0) 08/20/19 05:26 RBC 4.75 M/mm3 (3.65-5.03) 08/20/19 05:26 Hgb 14.4 gm/dl (11.8-15.2) 08/20/19 05:26 Hct 42.4 % (35.5-45.6) 08/20/19 05:26 MCV 89 fl (84-94) 08/20/19 05:26 MCH 30 pg (28-32) 08/20/19 05:26 MCHC 34 % (32-34) 08/20/19 05:26 RDW 14.1 % (13.2-15.2) 08/20/19 05:26 Plt Count 268 K/mm3 (140-440) 08/20/19 05:26 Lymph % (Auto) 33.5 % (13.4-35.0) 08/20/19 05:26 [place] % (Auto) 8.8 % (0.0-7.3) H 08/20/19 05:26 Eos % (Auto) 2.3 % (0.0-4.3) 08/20/19 05:26 Baso % (Auto) 1.2 % (0.0-1.8) 08/20/19 05:26 Lymph # 2.8 K/mm3 (1.2-5.4) 08/20/19 05:26 [place] # 0.7 K/mm3 (0.0-0.8) 08/20/19 05:26 Eos # 0.2 K/mm3 (0.0-0.4) 08/20/19 05:26 Baso # 0.1 K/mm3 (0.0-0.1) 08/20/19 05:26 Seg Neutrophils % 54.2 % (40.0-70.0) 08/20/19 05:26 Seg Neutrophils # 4.5 K/mm3 (1.8-7.7) 08/20/19 05:26 Sodium 139 mmol/L (137-145) 08/20/19 05:26 Potassium 4.0 mmol/L (3.6-5.0) D 08/20/19 05:26 Chloride 101.0 mmol/L (98-107) 08/20/19 05:26 Carbon Dioxide 25 mmol/L (22-30) 08/20/19 05:26 Anion Gap 17 mmol/L 08/20/19 05:26 BUN 24 mg/dL (9-20) H 08/20/19 05:26 Creatinine 1.3 mg/dL (0.8-1.5) 08/20/19 05:26 Estimated GFR > 60 ml/min 08/20/19 05:26 BUN/Creatinine Ratio 18 % 08/20/19 05:26 Glucose 144 mg/dL (75-100) H 08/20/19 05:26 POC Glucose 151 (70-105) H 08/20/19 11:53 Calcium 8.9 mg/dL (8.4-10.2) 08/20/19 05:26 Total Bilirubin 0.20 mg/dL (0.1-1.2) 08/20/19 05:26 AST 13 units/L (5-40) 08/20/19 05:26 ALT 9 units/L (7-56) 08/20/19 05:26 Alkaline Phosphatase 89 units/L (35-129) 08/20/19 05:26 Total Protein 7.2 g/dL (6.3-8.2) 08/20/19 05:26 Albumin 3.8 g/dL (3.9-5) L 08/20/19 05:26 Albumin/Globulin Ratio 1.1 % 08/20/19 05:26 Urine Color Yellow (Yellow) 08/19/19 23:37 Urine Turbidity Slightly-cloudy (Clear) 08/19/19 23:37 Urine pH 6.0 (5.0-7.0) 08/19/19 23:37 Ur Specific [place] 1.023 (1.003-1.030) 08/19/19 23:37 Urine Protein 30 mg/dl mg/dL (Negative) 08/19/19 23:37 Urine Glucose (UA) Neg mg/dL (Negative) 08/19/19 23:37 Urine Ketones Neg mg/dL (Negative) 08/19/19 23:37 Urine Blood Neg (Negative) 08/19/19 23:37 Urine Nitrite Neg (Negative) 08/19/19 23:37 Urine Bilirubin Neg (Negative) 08/19/19 23:37 Urine Urobilinogen 2.0 mg/dL (<2.0) 08/19/19 23:37 Ur Leukocyte Esterase Neg (Negative) 08/19/19 23:37 Urine WBC (Auto) 3.0 /HPF (0.0-6.0) 08/19/19 23:37 Urine RBC (Auto) < 1.0 /HPF (0.0-6.0) 08/19/19 23:37 U Epithel Cells (Auto) < 1.0 /HPF (0-13.0) 08/19/19 23:37 Urine Bacteria (Auto) 1+ /HPF (Negative) 08/19/19 23:37 Amorphous Crystals Few 08/19/19 23:37 Hyaline Casts 7 /LPF 08/19/19 23:37 Urine Mucus 1+ /HPF 08/19/19 23:37 Salicylates < 0.3 mg/dL (2.8-20.0) L 08/19/19 16:55 Urine Opiates Screen Presumptive negative 08/19/19 23:37 Urine Methadone Screen Presumptive negative 08/19/19 23:37 Acetaminophen < 5.0 ug/mL (10.0-30.0) L 08/19/19 16:55 Ur Barbiturates Screen Presumptive negative 08/19/19 23:37 Ur Phencyclidine Scrn Presumptive negative 08/19/19 23:37 Ur Amphetamines Screen Presumptive negative 08/19/19 23:37 U Benzodiazepines Scrn Presumptive negative 08/19/19 23:37 Urine Cocaine Screen Presumptive negative 08/19/19 23:37 U Marijuana (THC) Screen Presumptive negative 08/19/19 23:37 Drugs of Abuse Note Disclamer 08/19/19 23:37 Plasma/Serum Alcohol < 0.01 % (0-0.07) 08/19/19 16:55 Active Medications - Current Medications Current Medications: Generic Name Dose Route Start Last Admin Trade Name Freq PRN Reason Stop Dose Admin Acetaminophen 650 mg 08/19/19 19:00 Tylenol PO Q4H PRN Pain MILD(1-3)/Fever >100.5/COLON Albuterol 2.5 mg 08/19/19 19:00 Proventil IH Q4HRT PRN Shortness Of Breath Amlodipine Besylate 5 mg 08/20/19 10:00 08/20/19 12:06 Amlodipine PO 5 mg DAILY MALLY Administration Aspirin 81 mg 08/20/19 10:00 08/20/19 09:46 Baby Aspirin PO 81 mg QDAY MALLY Administration Atenolol 25 mg 08/20/19 10:00 Tenormin PO QDAY MALLY Atorvastatin Calcium 10 mg 08/19/19 22:00 08/19/19 22:41 Atorvastatin PO 10 mg QHS MALLY Administration Dextrose 50 ml 08/19/19 20:10 D50w (25gm) Syringe IV Q30MIN PRN Hypoglycemia Protocol Hydrochlorothiazide 25 mg 08/20/19 10:00 Hctz PO QDAY [facility] Insulin Human Lispro 0 unit 08/20/19 00:00 08/20/19 06:30 Humalog SUB-Q Not Given Q6HR MALLY Protocol Levetiracetam 500 mg 08/19/19 22:00 08/20/19 09:46 Keppra PO 500 mg BID MALLY Administration Losartan Potassium 100 mg 08/20/19 10:00 08/20/19 09:45 Cozaar PO 100 mg QDAY MALLY Administration Naproxen 375 mg 08/19/19 22:00 08/20/19 11:35 Naproxen PO 375 mg BID MALLY Administration Ondansetron HCl 4 mg 08/19/19 19:00 Zofran IV Q8H PRN Nausea And Vomiting Ondansetron HCl 4 mg 08/19/19 19:02 Zofran Odt PO Q6H PRN Nausea Sodium Chloride 10 ml 08/19/19 22:00 08/20/19 09:46 Sodium Chloride Flush Syringe 10 Ml IV 10 ml BID MALLY Administration Sodium Chloride 10 ml 08/19/19 19:00 Sodium Chloride Flush Syringe 10 Ml IV PRN PRN LINE FLUSH Spironolactone 25 mg 08/20/19 10:00 08/20/19 12:06 Aldactone PO 25 mg QDAY MALLY Administration Tamsulosin HCl 0.4 mg 08/20/19 10:00 08/20/19 09:46 Flomax PO 0.4 mg QDAY MALLY Administration Tramadol HCl 50 mg 08/19/19 19:23 Ultram PO Q6H PRN Pain, Moderate (4-6) Nutrition/Malnutrition Assess - Dietary Evaluation Nutrition/Malnutrition Findings: Nutrition Notes Start: 08/20/19 09:43 Freq: Status: Active Protocol: Document 08/20/19 09:43 TANG (Rec: 08/20/19 10:24 TANG [id number]) Co-Sign 08/20/19 09:43 LP Nutrition Notes 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 Pt experience no nausea or vomiting. Pt ate 50% of breakfast due to not liking eggs. Pt eating normal prior to arrival. Burn Absent Trauma Absent GI Symptoms None Minimum of two criteria No physical signs of malnutrition #1 Nutrition Diagnosis No nutrition diagnosis at this time Is patient on ventilator? No Is Patient Ambulatory and/or Out of Bed Yes REE-([place]-St. Jeor-ambulatory/OOB) [ 2727.075 [id number]] Kcal/Kg value to use for calculation 16 Approximate Energy Requirements Using 2047 kcal/Kg Calculation Used for Recommendations Kcal/kg Additional Notes Protein: 77-96g/kg (0.8-1g/kg AdjBW 96kg) Fluid: 1ml/kcal Nutrition Intervention Revisit per MD consult or patient Sign Off request:
[2019-08-20] MEDS: hydroCHLOROthiazide 25 MG TAB PO SCH ×2 (14:50→18:05)
[2019-08-20] MEDS: atenoloL 25 MG TAB PO SCH ×2 (14:50→18:05)
[2019-08-21] MEDS: INSULIN LISPRO 100 UNIT/ML SUB-Q SCH ×2 (00:57→06:04)
[2019-08-21] MEDS: NAPROXEN 375 MG TAB PO SCH (09:39)
[2019-08-21] MEDS: amLODIPine 5 MG TAB PO SCH (09:40)
[2019-08-21] MEDS: atenoloL 25 MG TAB PO SCH (09:41)
[2019-08-21] MEDS: levETIRAcetam 500 MG TAB PO SCH (09:42)
[2019-08-21] MEDS: LOSARTAN 50 MG TAB PO SCH (09:43)
[2019-08-21] MEDS: SPIRONOLACTONE 25 MG TAB PO SCH (09:44)
[2019-08-21] MEDS: hydroCHLOROthiazide 25 MG TAB PO SCH (09:44)
[2019-08-21] MEDS: TAMSULOSIN 0.4 MG CAP PO SCH (09:44)
[2019-08-21] MEDS: ASPIRIN 81 MG TAB CHEW PO SCH (09:44)
[2019-08-21 09:46] VITALS: BP 149/76
--- NOTE | 2019-08-21 09:59 | Discharge Summary ---
Providers - Providers Date of Admission: 08/19/19 19:00 Date of discharge: 08/21/19 Attending physician: DANYEL CASTILLO 08/19/19 19:59 Consult to Physician [CONS] Routine Comment: Consulting Provider: MARI WILSON Physician Instructions: Reason For Exam: New Onset Seizure Primary care physician: SLUNK SKINNER Hospitalization Reason for admission: new sz d/o Condition: Critical Hospital course: 49-year-old male with past medical history of hypertension, diabetes and previous CVA presented through the emergency department with new onset seizure. Patient was admitted with diagnosis of seizure disorder and probable obstructive sleep apnea. Patient was evaluated by neurology in consultation and treated with Keppra 500 mg twice a day. After administration of Keppra, patient had no recurrence of seizure activity. CT scan obtained on admission showed an old infarct in the left internal capsule and an old infarct in the right santoyo radiata. No new evidence of infarct. Neurology will follow up with the patient as outpatient for possible EEG and recommended need for sleep evaluation and CPAP to prevent future CVA because obstructive sleep apnea is also an independent risk factor for CVA. Patient is also instructed to have no driving until followed up by neurology or PCP. Dedicated discharge time 32 minutes. Disposition: DC-01 TO HOME OR SELFCARE Time spent for discharge: 32 - Discharge Diagnoses (1) Diabetes Status: Acute (2) GERD (gastroesophageal reflux disease) Status: Acute Qualifiers: Esophagitis presence: without esophagitis Qualified Code(s): K21.9 - Gastro-esophageal reflux disease without esophagitis (3) HTN (hypertension) Status: Acute Qualifiers: Hypertension type: essential hypertension Qualified Code(s): I10 - Essential (primary) hypertension (4) Hyperkalemia Status: Acute (5) New onset seizure Status: Acute (6) Obesity hypoventilation syndrome Status: Acute (7) Recent cerebrovascular accident (CVA) Status: Acute Core Measure Documentation - Palliative Care Palliative Care/ Comfort Measures: Not Applicable - Core Measures Any of the following diagnoses?: none Exam - Constitutional Vitals: Temp Pulse Resp BP Pulse Ox 98.5 F 64 16 149/76 100 08/21/19 05:08 08/21/19 09:44 08/21/19 05:08 08/21/19 09:44 08/21/19 09:11 General appearance: Present: no acute distress, well-nourished - EENT Eyes: Present: PERRL ENT: hearing intact, clear oral mucosa - Neck Neck: Present: supple, normal ROM - Respiratory Respiratory effort: normal Respiratory: bilateral: CTA - Cardiovascular Heart Sounds: Present: S1 & S2. Absent: rub, click - Extremities Extremities: pulses symmetrical, No edema Peripheral Pulses: within normal limits - Abdominal General gastrointestinal: Present: soft, non-tender, non-distended, normal bowel sounds Male genitourinary: Present: normal - Integumentary Integumentary: Present: clear, warm, dry - Musculoskeletal Musculoskeletal: gait normal, strength equal bilaterally - Psychiatric Psychiatric: appropriate mood/affect, intact judgment & insight - Neurologic Neurologic: CNII-XII intact, moves all extremities Plan Activity: advance as tolerated, no driving until cleared by PCP Weight Bearing Status: Weight Bear as Tolerated Diet: diabetic Follow up with: PRIMARY CAREMD [Primary Care Provider] - 3-5 Days MARI WILSON MD [Staff Physician] - 7 Days Prescriptions: Spironolactone [Aldactone] 25 mg PO QDAY #30 tab amLODIPine 5 mg PO DAILY #30 tab Aspirin [Aspirin BABY CHEW TAB] 81 mg PO QDAY #30 tab AtorvaSTATin 10 mg PO QHS #30 tab Losartan [Cozaar] 100 mg PO QDAY #30 tab Tamsulosin [Flomax] 0.4 mg PO QDAY #10 cap metFORMIN [Glucophage] 1,000 mg PO QDAY #30 tab hydroCHLOROthiazide [HCTZ] 25 mg PO QDAY #30 tab levETIRAcetam [Keppra TAB] 500 mg PO BID #60 tablet
== END 2019-08-21 13:45 | disposition home or self-care (01) ==
LOC: ED 16:05 → 3A 19:00
PROVIDERS: ADMIT Internal Medicine; ATTEND Hospitalist
DX: I63.9 Cerebral infarction, unspecified (principal); E87.5 Hyperkalemia; R56.9 Unspecified convulsions; E66.2 Morbid (severe) obesity with alveolar hypoventilation; E11.9 Type 2 diabetes mellitus without complications; I11.0 Hypertensive heart disease with heart failure; I50.9 Heart failure, unspecified; M10.9 Gout, unspecified; K21.9 Gastro-esophageal reflux disease without esophagitis; Z86.73 Personal history of transient ischemic attack (TIA), and cerebral infarction without residual deficits; Z79.4 Long term (current) use of insulin; Z79.82 Long term (current) use of aspirin; Z68.42 Body mass index [BMI] 45.0-49.9, adult
CPT/HCPCS: 36415; 70450; 73562; 80053; 80307; 81001; 82962; 85025; 93005; 93010; 96372; 96374; 99291; A9270; G0378; J1953; 80320; G0480; J1815

== ENCOUNTER 2020-01-30 20:08 | Emergency (ER) | payer BC, MEDICARE ==
[2020-01-30] MEDS ORDERED: ACETAMINOPHEN 500 MG TAB PO ONE (20:27)
--- NOTE | 2020-01-30 20:28 | Emergency Department Report ---
ED General Adult HPI - General Chief complaint: Dyspnea/Respdistress Stated complaint: COUGH, CHEST PAIN, THROAT PAIN Time Seen by Provider: 01/30/20 20:17 Source: patient, EMS ( EMS documentation not available at time of chart dictation ), RN notes reviewed, old records reviewed Mode of arrival: Ambulatory Limitations: No Limitations - History of Present Illness Initial comments: Patient is a 49-year-old gentleman. He has a history of obesity, diabetes, hypertension, possible sleep apnea, remote history of stroke. Had a cardiac nuclear stress test in February 2019, which was negative for ischemic findings and showed an ejection fraction of 52%. The patient presents to the ER today with a complaint of "I think I have coronavirus." He reports staying at home, self isolating and self quarantining. He endorses cough, shortness of breath, body aches, fever, sore throat and rhinorrhea. Symptoms present for 2 days. They are basically intermittent. He also describes loss of taste and smell. He denies physical pain to myself at this time. He is urinating and defecating normally. There is no complaint of vomiting, diarrhea, chest pain, and he denies sick contacts. He denies DVT and pulmonary embolism risk factors. -: Gradual, days(s) Consistency: intermittent Improves with: rest Worsens with: movement, other (Coughing) - Related Data Home Medications Medication Instructions Recorded Confirmed Last Taken Atenolol 25 mg PO DAILY 02/19/19 08/20/19 08/19/19 10:00 Insulin Detemir [Levemir VIAL] 40 unit SQ QAM 02/19/19 08/20/19 08/19/19 10:00 Previous Rx's Medication Instructions Recorded Last Taken Type Acetaminophen [Acetaminophen TAB] 1,000 mg PO Q6HR #30 tablet 05/19/17 Unknown Rx Naproxen [Naprosyn TAB] 375 mg PO BID #30 tablet 05/19/17 08/19/19 22:00 Rx Penicillin Vk [Veetids TAB] 250 mg PO QID #28 tablet 05/19/17 08/19/19 10:00 Rx traMADoL [Ultram 50 MG tab] 50 mg PO Q6HR PRN #10 tablet 06/15/17 Unknown Rx Aspirin [Aspirin BABY CHEW TAB] 81 mg PO QDAY #30 tab 11/16/19 Unknown Rx AtorvaSTATin 10 mg PO QHS #30 tab 08/21/19 Unknown Rx Lispro Insulin [HumaLOG] 0 unit SUB-Q Q6HR units 08/21/19 Unknown Rx Losartan [Cozaar] 100 mg PO QDAY tablet 08/21/19 Unknown Rx Losartan [Cozaar] 100 mg PO QDAY #30 tab 08/21/19 Unknown Rx Spironolactone [Aldactone] 25 mg PO QDAY #30 tab 08/21/19 Unknown Rx Tamsulosin [Flomax] 0.4 mg PO QDAY #10 cap 08/21/19 Unknown Rx amLODIPine 5 mg PO DAILY #30 tab 08/21/19 Unknown Rx hydroCHLOROthiazide [HCTZ] 25 mg PO QDAY #30 tab 08/21/19 Unknown Rx levETIRAcetam [Keppra TAB] 500 mg PO BID #60 tablet 08/21/19 Unknown Rx metFORMIN [Glucophage] 1,000 mg PO QDAY #30 tab 08/21/19 Unknown Rx Albuterol Sulfate [Proair 90 mcg IH Q4HR PRN #2 aer.pow.ba 01/30/20 Unknown Rx Respiclick] Allergies Allergy/AdvReac Type Severity Reaction Status Date / Time No Known Allergies Allergy Verified 01/09/17 08:09 ED Review of Systems ROS: Stated complaint: COUGH, CHEST PAIN, THROAT PAIN Other details as noted in HPI Constitutional: fever Eyes: denies: eye discharge ENT: congestion Respiratory: cough, shortness of breath Cardiovascular: denies: chest pain, syncope Gastrointestinal: denies: vomiting Genitourinary: denies: dysuria Musculoskeletal: arthralgia, myalgia Skin: as per HPI. denies: lesions Neurological: weakness Psychiatric: as per HPI Hematological/Lymphatic: as per HPI, other (See history of present illness) ED Past Medical Hx - Past Medical History Hx Hypertension: Yes Hx CVA: Yes Hx Heart Attack/AMI: No Hx Congestive Heart Failure: Yes Hx Diabetes: Yes Hx GERD: Yes Hx Sickle Cell Disease: No Hx Seizures: Yes Hx Tuberculosis: No Hx HIV: No Additional medical history: GOUT. OBESITY - Surgical History Hx Pacemaker: No Hx Internal Defibrillator: No - Social History Smoking Status: Never Smoker - Medications Home Medications: Home Medications Medication Instructions Recorded Confirmed Last Taken Type Acetaminophen [Acetaminophen TAB] 1,000 mg PO Q6HR #30 tablet 05/19/17 08/20/19 Unknown Rx Naproxen [Naprosyn TAB] 375 mg PO BID #30 tablet 05/19/17 08/20/19 08/19/19 22:00 Rx Penicillin Vk [Veetids TAB] 250 mg PO QID #28 tablet 05/19/17 08/20/19 08/19/19 10:00 Rx traMADoL [Ultram 50 MG tab] 50 mg PO Q6HR PRN #10 tablet 06/15/17 08/20/19 Unknown Rx Atenolol 25 mg PO DAILY 02/19/19 08/20/19 08/19/19 10:00 History Insulin Detemir [Levemir VIAL] 40 unit SQ QAM 02/19/19 08/20/19 08/19/19 10:00 History Aspirin [Aspirin BABY CHEW TAB] 81 mg PO QDAY #30 tab 08/21/19 Unknown Rx AtorvaSTATin 10 mg PO QHS #30 tab 08/21/19 Unknown Rx Lispro Insulin [HumaLOG] 0 unit SUB-Q Q6HR units 08/21/19 Unknown Rx Losartan [Cozaar] 100 mg PO QDAY tablet 08/21/19 Unknown Rx Losartan [Cozaar] 100 mg PO QDAY #30 tab 08/21/19 Unknown Rx Spironolactone [Aldactone] 25 mg PO QDAY #30 tab 08/21/19 Unknown Rx Tamsulosin [Flomax] 0.4 mg PO QDAY #10 cap 08/21/19 Unknown Rx amLODIPine 5 mg PO DAILY #30 tab 08/21/19 Unknown Rx hydroCHLOROthiazide [HCTZ] 25 mg PO QDAY #30 tab 08/21/19 Unknown Rx levETIRAcetam [Keppra TAB] 500 mg PO BID #60 tablet 08/21/19 Unknown Rx metFORMIN [Glucophage] 1,000 mg PO QDAY #30 tab 08/21/19 Unknown Rx Albuterol Sulfate [Proair 90 mcg IH Q4HR PRN #2 aer.pow.ba 01/30/20 Unknown Rx Respiclick] ED Physical Exam - General Limitations: No Limitations General appearance: alert, anxious, obese - Head Head exam: Present: atraumatic, normocephalic - Eye Eye exam: Present: normal appearance, EOMI. Absent: nystagmus - ENT ENT exam: Present: normal exam, normal orophraynx, mucous membranes moist, normal external ear exam - Neck Neck exam: Present: normal inspection, full ROM. Absent: tenderness, m eningismus - Respiratory Respiratory exam: Present: normal lung sounds bilaterally. Absent: respiratory distress - Cardiovascular Cardiovascular Exam: Present: normal rhythm, tachycardia, normal heart sounds. Absent: systolic murmur, diastolic murmur, rubs, gallop - GI/Abdominal GI/Abdominal exam: Present: soft. Absent: distended, tenderness, guarding, rebound, rigid, pulsatile mass - Rectal Rectal exam: Present: deferred - Extremities Exam Extremities exam: Present: normal inspection, full ROM, other (2+ pulses noted in the bilateral upper extremities. There is no long bony tenderness. The mu scular compartments are soft. The pelvis is stable. The patient walks with a steady gait.). Absent: pedal edema, calf tenderness - Back Exam Back exam: Present: normal inspection. Absent: tenderness, CVA tenderness (R), CVA tenderness (L), paraspinal tenderness, vertebral tenderness - Neurological Exam Neurological exam: Present: alert, normal gait, other (No facial droop. Tongue midline. Extraocular movements intact bilaterally. Facial sensation intact to light touch in V1, V2, V3 distribution bilaterally. 5 and a 5 strength in 4 extremities. Sensation intact to light touch in 4 extremities.). Absent: motor sensory deficit - Psychiatric Psychiatric exam: Present: anxious - Skin Skin exam: Present: warm, dry, intact, normal color. Absent: rash ED Course Vital Signs 01/30/20 01/30/20 20:19 20:23 Temperature 101.5 F H Pulse Rate 110 H 88 Respiratory 17 20 Rate Blood Pressure 166/98 O2 Sat by Pulse 96 Oximetry - Reevaluation(s) Reevaluation #1: 01/30/20 21:52 Please note that for the patient's entire history and physical examination, I had on complete personal protective equipment. ED Medical Decision Making - Lab Data Vital Signs 01/30/20 01/30/20 20:19 20:23 Temperature 101.5 F H Pulse Rate 110 H 88 Respiratory 17 20 Rate Blood Pressure 166/98 O2 Sat by Pulse 96 Oximetry - EKG Data -: EKG Interpreted by Tx EKG shows normal: sinus rhythm Rate: normal - EKG Data 01/30/20 21:44 The EKG today is not consistent with a STEMI. Sinus rhythm, tachycardia, normal axis, QTC 430 ms, high left ventricular voltage, nonspecific T wave abnormalities high lateral leads, Q waves noted in aVF, this EKG is abnormal, it is not a STEMI, it appears to be morphologically unchanged when compared to prior EKG from August 19, 2019. - Radiology Data Radiology results: pending, report reviewed, image reviewed X-ray of the chest is negative for acute disease - Medical Decision Making Differential diagnosis, including but not limited to: Viral syndrome, suspected coronavirus infection Assessment and plan: 49-year-old gentleman with fever, tachycardia, cough, shortness of breath, self suspicion of having coronavirus, most likely experiencing early natural history of coronavirus. His tachycardia improved to 106 bpm, and the patient was able to walk for 6 minutes on room air, without desaturation. At this point in time, he does not require admission to the hospital or hospitalization. He endorses that he is r eliable to follow-up as an outpatient. Explained to the patient that he would need to closely follow-up for repeat checkup and evaluation, he can be treated supportively and symptomatically, and he endorses that he is reliable to return to the hospital if he clinically worsens. Critical care attestation.: If time is entered above; I have spent that time in minutes in the direct care of this critically ill patient, excluding procedure time. ED Disposition Clinical Impression: Suspected 2019 novel coronavirus infection Disposition: DC-01 TO HOME OR SELFCARE Is pt being admited?: No Does the pt Need Aspirin: No Condition: Stable Instructions: COVID-19 Additional Instructions: Continue outpatient medications. Patient will likely continue to experience fevers, this is expected. Patient may take Tylenol/acetaminophen, [id number], every 4-6 hours, 650 mg by mouth, as needed for fever and/or pain. Patient may also alternate this with ibuprofen, 400 mg by mouth with food, every 6 hours, as needed for fever and/or pain. It is very important that the patient closely follow-up with an outpatient primary care doctor within the next 3 to 4 days for repeat checkup and evaluation. Patient will likely continue to experience cough, shortness of breath, fever, body aches, malaise and fatigue. Please return to the emergency room right away with new, worsened or different symptoms, or symptoms not present on the initial emergency room evaluation, severe shortness of breath, or change in mental status. If the patient has not followed up with an outpatient sleep specialist or neurologist to have a sleep study performed to assess for the presence of obstructive sleep apnea, highly recommend that the patient do that as well, as undiagnosed obstructive sleep apnea may cause hypertension heart disease, stroke, paralysis, loss of quality of life, and . The patient should continue to self isolate and self quarantine for 14 days from the onset of sympt oms, and should specifically avoid exposure in contact with the elderly, and immune compromised. Please make certain to wash hands very thoroughly with soap and water often and frequently, and after coughing, sneezing, and before and after handling food. Prescriptions: Albuterol Sulfate [Proair Respiclick] 90 mcg IH Q4HR PRN #2 aer.pow.ba PRN Reason: Wheezing Referrals: PAUL LÓPEZ MD [Staff Physician] - 3-5 Days MARTIN HERRERA MD [Staff Physician] - as needed (follow up for sleep study) Forms: Work/School Release Form(ED)
--- NOTE | 2020-01-30 21:06 | XRay Report ---
CHEST 1 VIEW INDICATION / CLINICAL INFORMATION: cough fever sob. COMPARISON: 03/28/2019 FINDINGS: SUPPORT DEVICES: None. HEART / MEDIASTINUM: No significant abnormality. LUNGS / PLEURA: No significant pulmonary or pleural abnormality. No pneumothorax. ADDITIONAL FINDINGS: No significant additional findings. IMPRESSION: 1. No acute findings. Signer Name: Jadiel Mckoy MD Signed: 01/30/2020 9:01 PM Workstation Name: [id number]
[2020-01-30 22:09] VITALS: BP 160/96
== END 2020-01-30 22:10 | disposition home or self-care (01) ==
LOC: ED 20:08
DX: R05 Cough (principal); R06.02 Shortness of breath; J02.9 Acute pharyngitis, unspecified; I11.0 Hypertensive heart disease with heart failure; I50.9 Heart failure, unspecified; E11.9 Type 2 diabetes mellitus without complications; K21.9 Gastro-esophageal reflux disease without esophagitis; R56.9 Unspecified convulsions; M10.9 Gout, unspecified; E66.9 Obesity, unspecified; Z20.828 Contact with and (suspected) exposure to other viral communicable diseases; Z68.42 Body mass index [BMI] 45.0-49.9, adult; Z86.73 Personal history of transient ischemic attack (TIA), and cerebral infarction without residual deficits; Z98.890 Other specified postprocedural states; Z79.4 Long term (current) use of insulin; Z79.2 Long term (current) use of antibiotics; Z79.899 Other long term (current) drug therapy
CPT/HCPCS: 71045; 93005